=== PATIENT | female | born 1990 | race Caucasian/White ===

== ENCOUNTER 2022-06-25 19:33 | Inpatient (IN) | payer MEDICARE, MEDICAID ==
[~2022-06-25] VITALS: Ht 152.4 cm; Wt 50.0 kg
[2022-06-25] MEDS ORDERED: DIPHENHYDRAMINE 25MG CAPSULE PO ONE (21:00)
[2022-06-25] MEDS ORDERED: ASPIRIN 81MG TABLET PO ONE (21:00)
[2022-06-25 21:49] LABS: EOSINOPHILS % 2.2 % (0.0-5.0); HEMATOCRIT. 27.3 % (36.0-48.0); HEMOGLOBIN. 9.2 g/dL (12.0-16.0); LYMPHOCYTES % 17.6 % (20.0-50.0); MEAN CORPUSCULAR HEMOGLOBIN 32.3 pg (28.0-32.0); MEAN CORPUSCULAR VOLUME 95.7 fL (81.0-99.0); MEAN PLATELET VOLUME 8.6 fl (7.4-10.4); MONOCYTES % 8.4 % (2.0-8.0); NEUTROPHILS % 69.8 % (40.0-76.0); PLATELET 208 x1000/uL (130-400); RED BLOOD CELL COUNT 2.85 mill/uL (4.2-5.4)
[2022-06-25] MEDS: NITROGLYCERIN 0.4MG TABLET SL SL PRN ×2 (21:49→23:19)
[2022-06-25 21:56] LABS: CHLORIDE 92 mEq/L (98-107)
[2022-06-25] MEDS ORDERED: HYDRALAZINE 20MG/ML VIAL IV ONE (22:15)
[2022-06-25] MEDS ORDERED: HYDROCODONE/ACETAMINOPHEN 5/325MG TABLET PO ONE (22:15)
[2022-06-25] MEDS ORDERED: INSULIN REGULAR (HUMULIN R) 300UNITS/3ML VIAL SUBCUT ONE (22:30)
[2022-06-26] VITALS (7 sets, daily range): BP systolic 113–194; BP diastolic 68–104
[2022-06-26] MEDS ORDERED: INSULIN LISPRO 100 UNITS/ML SUBCUT NR (01:30)
[2022-06-26] MEDS: CLONIDINE 0.1MG TABLET PO PRN ×2 (01:46→23:57)
[2022-06-26] MEDS ORDERED: CLON0.2T PO (03:37)
[2022-06-26] MEDS ORDERED: AMLO10TA80 PO (03:37)
[2022-06-26] MEDS ORDERED: HYDR100T26 PO (03:37)
[2022-06-26] MEDS: ONDANSETRON HCL 4MG/2ML INJ IV PRN ×2 (04:10→10:17)
[2022-06-26] MEDS: DIPHENHYDRAMINE 50MG/ML VIAL IV PRN ×4 (04:10→18:17)
[2022-06-26] MEDS: HYDRALAZINE 20MG/ML VIAL IV PRN ×2 (04:11→13:06)
[2022-06-26] MEDS: DEXTROSE 50% WATER 50ML SYRINGE IV PRN ×3 (04:22→08:42)
[2022-06-26] MEDS: DEXT 5%/0.9% NACL 1,000 ML IV SCH ×2 (04:27→23:21)
[2022-06-26] MEDS: INSULIN LISPRO (HIGH DOSE) 100 UNITS/ML SUBCUT SCH ×4 (06:28→21:04)
[2022-06-26] MEDS: BLOOD SUGAR DIAGNOSTIC STRIP TEST SCH ×4 (06:28→21:11)
[2022-06-26] MEDS: PANTOPRAZOLE SODIUM 40 MG/VIAL IV SCH (08:33)
[2022-06-26] MEDS: AMLODIPINE 5MG TABLET PO SCH ×2 (09:30→21:00)
[2022-06-26] MEDS: MORPHINE SULFATE 2 MG/ML CPJ (NOT FOR IM USE) IV PRN ×3 (09:31→23:22)
[2022-06-26 10:21] LABS: BASOPHILS % 1.6 % (0.0-2.0); EOSINOPHILS % 2.4 % (0.0-5.0); HEMATOCRIT. 27.9 % (36.0-48.0); HEMOGLOBIN. 9.5 g/dL (12.0-16.0); LYMPHOCYTES % 24.5 % (20.0-50.0); MEAN CORPUSCULAR HEMOGLOBIN 32.1 pg (28.0-32.0); MEAN CORPUSCULAR VOLUME 94.4 fL (81.0-99.0); MEAN PLATELET VOLUME 8.4 fl (7.4-10.4); NEUTROPHILS % 64.5 % (40.0-76.0); PLATELET 241 x1000/uL (130-400); RED BLOOD CELL COUNT 2.95 mill/uL (4.2-5.4); RED CELL DISTRIBUTION WIDTH 14.2 % (11.6-14.6)
[2022-06-26] MEDS ORDERED: NALOXONE HCL 0.4MG/ML VIAL IV PRN (11:00)
[2022-06-26] MEDS: METOPROLOL TARTRATE 25MG TABLET PO SCH ×2 (14:15→21:00)
[2022-06-26] MEDS ORDERED: CLONIDINE 0.1MG TABLET PO SCH (14:15)
[2022-06-26 14:38] LABS: HEPATITIS B SURFACE ANTIGEN NEGATIVE
[2022-06-26] MEDS: HYDRALAZINE HCL 100MG TABLET PO SCH (17:00)
[2022-06-26] MEDS: CLONIDINE 0.2MG TABLET PO SCH (17:00)
[2022-06-26] MEDS: METOCLOPRAMIDE HCL 10MG/2ML VIAL IV SCH ×2 (17:15→23:21)
[2022-06-26] MEDS: EPOETIN ALFA-EPBX 4,000 UNIT/ML VIAL SUBCUT SCH (21:00)
[2022-06-26] MEDS: HYDRALAZINE HCL 25MG TABLET PO SCH (21:01)
[2022-06-27] VITALS: BP 168/91
[2022-06-27 04:00] VITALS: BP 166/90
[2022-06-27] MEDS: DIPHENHYDRAMINE 50MG/ML VIAL IV PRN ×3 (04:56→18:05)
[2022-06-27] MEDS: METOCLOPRAMIDE HCL 10MG/2ML VIAL IV SCH ×3 (05:01→17:53)
[2022-06-27] MEDS: BLOOD SUGAR DIAGNOSTIC STRIP TEST SCH ×4 (05:59→21:15)
[2022-06-27] MEDS: MORPHINE SULFATE 2 MG/ML CPJ (NOT FOR IM USE) IV PRN ×3 (06:49→21:40)
[2022-06-27] MEDS: INSULIN LISPRO (HIGH DOSE) 100 UNITS/ML SUBCUT SCH ×4 (07:10→21:38)
[2022-06-27 07:37] LABS: BASOPHILS % 1.5 % (0.0-2.0); HEMATOCRIT. 23.1 % (36.0-48.0); HEMOGLOBIN. 7.8 g/dL (12.0-16.0); LYMPHOCYTES % 23.7 % (20.0-50.0); MEAN CORPUSCULAR HEMOGLOBIN 32.1 pg (28.0-32.0); MEAN CORPUSCULAR VOLUME 94.8 fL (81.0-99.0); MEAN PLATELET VOLUME 8.4 fl (7.4-10.4); MONOCYTES % 8.7 % (2.0-8.0); NEUTROPHILS % 64.1 % (40.0-76.0); PLATELET 200 x1000/uL (130-400); RED BLOOD CELL COUNT 2.44 mill/uL (4.2-5.4); RED CELL DISTRIBUTION WIDTH 14.3 % (11.6-14.6)
[2022-06-27 08:00] VITALS: BP 140/81
[2022-06-27 08:32] LABS: PHOSPHORUS 4.6 mg/dL (2.5-4.9)
[2022-06-27] MEDS: HYDRALAZINE HCL 100MG TABLET PO SCH ×3 (09:00→17:53)
[2022-06-27] MEDS: AMLODIPINE 5MG TABLET PO SCH (09:00)
[2022-06-27] MEDS: CLONIDINE 0.2MG TABLET PO SCH ×2 (09:00→17:00)
[2022-06-27] MEDS: HYDRALAZINE HCL 25MG TABLET PO SCH (09:00)
[2022-06-27] MEDS: PANTOPRAZOLE SODIUM 40 MG/VIAL IV SCH (09:13)
[2022-06-27] MEDS: AMLODIPINE 10MG TABLET PO SCH (09:14)
[2022-06-27] MEDS: METOPROLOL TARTRATE 25MG TABLET PO SCH ×2 (09:14→21:00)
[2022-06-27 12:00] VITALS: BP 136/80
[2022-06-27 16:00] VITALS: BP 136/85
[2022-06-27] MEDS ORDERED: LOPERAMIDE HCL 2MG CAPSULE PO PRN (17:00)
[2022-06-27 20:00] VITALS: BP 102/61
[2022-06-27] MEDS ORDERED: EPOETIN ALFA-EPBX 4,000 UNIT/ML VIAL SUBCUT NR (21:00)
[2022-06-28] VITALS: BP 159/91
[2022-06-28] MEDS: DIPHENHYDRAMINE 50MG/ML VIAL IV PRN ×4 (00:30→20:46)
[2022-06-28] MEDS: METOCLOPRAMIDE HCL 10MG/2ML VIAL IV SCH ×5 (00:31→23:32)
[2022-06-28 04:00] VITALS: BP 151/86
[2022-06-28] MEDS: MORPHINE SULFATE 2 MG/ML CPJ (NOT FOR IM USE) IV PRN ×4 (04:14→23:33)
[2022-06-28] MEDS: BLOOD SUGAR DIAGNOSTIC STRIP TEST SCH ×4 (05:38→21:00)
[2022-06-28] MEDS: INSULIN LISPRO (HIGH DOSE) 100 UNITS/ML SUBCUT SCH ×4 (06:01→21:00)
[2022-06-28 07:40] LABS: BASOPHILS % 2.5 % (0.0-2.0); HEMATOCRIT. 25.2 % (36.0-48.0); HEMOGLOBIN. 8.3 g/dL (12.0-16.0); LYMPHOCYTES % 32.3 % (20.0-50.0); MEAN CORPUSCULAR VOLUME 97.3 fL (81.0-99.0); MEAN PLATELET VOLUME 9.1 fl (7.4-10.4); MONOCYTES % 8.7 % (2.0-8.0); NEUTROPHILS % 53.5 % (40.0-76.0); PLATELET 207 x1000/uL (130-400); RED BLOOD CELL COUNT 2.59 mill/uL (4.2-5.4); RED CELL DISTRIBUTION WIDTH 14.5 % (11.6-14.6)
[2022-06-28 07:50] LABS: CHLORIDE 94 mEq/L (98-107)
[2022-06-28 08:00] VITALS: BP 173/97
[2022-06-28 08:00] LABS: PHOSPHORUS 5.5 mg/dL (2.5-4.9); TOTAL IRON BINDING CAPACITY 194 ug/dL (250-450)
[2022-06-28] MEDS: PANTOPRAZOLE SODIUM 40 MG/VIAL IV SCH (08:41)
[2022-06-28] MEDS: METOPROLOL TARTRATE 25MG TABLET PO SCH ×2 (09:00→20:47)
[2022-06-28] MEDS: AMLODIPINE 10MG TABLET PO SCH (09:00)
[2022-06-28] MEDS: HYDRALAZINE HCL 100MG TABLET PO SCH ×3 (09:00→17:12)
[2022-06-28] MEDS: CLONIDINE 0.2MG TABLET PO SCH ×2 (09:00→17:12)
[2022-06-28 12:00] VITALS: BP 170/90
[2022-06-28] MEDS: METRONIDAZOLE 500 MG PREMIX 100 ML IV SCH ×2 (14:00→21:01)
[2022-06-28 16:00] VITALS: BP 175/96
[2022-06-28 20:30] VITALS: BP 157/88
[2022-06-28] MEDS: EPOETIN ALFA-EPBX 4,000 UNIT/ML VIAL SUBCUT SCH (20:47)
[2022-06-29] VITALS (8 sets, daily range): BP systolic 119–176; BP diastolic 75–99
[2022-06-29] MEDS: DIPHENHYDRAMINE 50MG/ML VIAL IV PRN ×2 (02:50→10:54)
[2022-06-29] MEDS: METRONIDAZOLE 500 MG PREMIX 100 ML IV SCH ×2 (05:41→14:39)
[2022-06-29] MEDS: METOCLOPRAMIDE HCL 10MG/2ML VIAL IV SCH ×2 (05:41→12:29)
[2022-06-29] MEDS: MORPHINE SULFATE 2 MG/ML CPJ (NOT FOR IM USE) IV PRN ×3 (05:44→12:30)
[2022-06-29] MEDS: CLONIDINE 0.1MG TABLET PO PRN (05:49)
[2022-06-29] MEDS: BLOOD SUGAR DIAGNOSTIC STRIP TEST SCH ×2 (06:16→12:27)
[2022-06-29] MEDS: CLONIDINE 0.2MG TABLET PO SCH (08:31)
[2022-06-29] MEDS: AMLODIPINE 10MG TABLET PO SCH (08:31)
[2022-06-29] MEDS: HYDRALAZINE 20MG/ML VIAL IV PRN (08:32)
[2022-06-29] MEDS: METOPROLOL TARTRATE 25MG TABLET PO SCH (08:32)
[2022-06-29] MEDS: HYDRALAZINE HCL 100MG TABLET PO SCH ×2 (08:38→12:28)
[2022-06-29] MEDS: INSULIN LISPRO (HIGH DOSE) 100 UNITS/ML SUBCUT SCH ×2 (08:38→12:10)
[2022-06-29] MEDS ORDERED: FAMOTIDINE 20MG/2ML VIAL IV SCH (09:00)
[2022-06-29 12:20] LABS: EOSINOPHILS % 1.5 % (0.0-5.0); HEMATOCRIT. 23.5 % (36.0-48.0); HEMOGLOBIN. 7.9 g/dL (12.0-16.0); LYMPHOCYTES % 16.3 % (20.0-50.0); MEAN CORPUSCULAR VOLUME 95.4 fL (81.0-99.0); MEAN PLATELET VOLUME 8.5 fl (7.4-10.4); MONOCYTES % 5.4 % (2.0-8.0); NEUTROPHILS % 75.8 % (40.0-76.0); PLATELET 207 x1000/uL (130-400); RED BLOOD CELL COUNT 2.46 mill/uL (4.2-5.4); RED CELL DISTRIBUTION WIDTH 14.4 % (11.6-14.6)
[2022-06-29 13:00] LABS: CHLORIDE 94 mEq/L (98-107)
[2022-06-29 13:10] LABS: PHOSPHORUS 4.6 mg/dL (2.5-4.9)
[2022-06-29] MEDS ORDERED: IMOD PO (14:14)
[2022-06-29] MEDS ORDERED: INSLIS SUBCUT (14:14)
[2022-07-01 13:06] LABS: SACCHAROMYCES CEREVISIAE IGG 41.6 Units (0.0-24.9); SACCHAROMYCES CEREVISIAE IGM 69.3 Units (0.0-24.9)
[2022-07-02 13:06] LABS: ATYPICAL pANCA <1:20 titer (Neg:<1:20)
== END 2022-06-29 17:15 | disposition home or self-care (01) | DRG 73 ==
LOC: ER 19:33 → EDBEDREQTM 21:16 → EDBEDREQ 22:16 → MICUSO 22:46 → EDBEDREQ 22:58 → EDBEDREQTM 22:58 → 7EST 06-26 02:41
PROVIDERS: ADMIT Internal Medicine; ATTEND Internal Medicine
PROC: 5A1D70Z Performance of Urinary Filtration, Intermittent, Less than 6 Hours Per Day (ICD-10-PCS; principal; 2022-06-26)
PROC: 5A1D70Z Performance of Urinary Filtration, Intermittent, Less than 6 Hours Per Day (ICD-10-PCS; 2022-06-27)
PROC: 5A1D70Z Performance of Urinary Filtration, Intermittent, Less than 6 Hours Per Day (ICD-10-PCS; 2022-06-28)
DX: E10.43 Type 1 diabetes mellitus with diabetic autonomic (poly)neuropathy (principal); N18.6 End stage renal disease; E87.1 Hypo-osmolality and hyponatremia; J90 Pleural effusion, not elsewhere classified; J98.11 Atelectasis; R18.8 Other ascites; I12.0 Hypertensive chronic kidney disease with stage 5 chronic kidney disease or end stage renal disease; K52.9 Noninfective gastroenteritis and colitis, unspecified; K31.84 Gastroparesis; E10.319 Type 1 diabetes mellitus with unspecified diabetic retinopathy without macular edema; E10.22 Type 1 diabetes mellitus with diabetic chronic kidney disease; E10.649 Type 1 diabetes mellitus with hypoglycemia without coma; E10.65 Type 1 diabetes mellitus with hyperglycemia; E78.5 Hyperlipidemia, unspecified; I16.0 Hypertensive urgency; R16.0 Hepatomegaly, not elsewhere classified; D63.1 Anemia in chronic kidney disease; H54.8 Legal blindness, as defined in USA; E66.9 Obesity, unspecified; D72.819 Decreased white blood cell count, unspecified; R74.01 Elevation of levels of liver transaminase levels; R74.8 Abnormal levels of other serum enzymes; R79.89 Other specified abnormal findings of blood chemistry; D64.9 Anemia, unspecified; Z68.21 Body mass index [BMI] 21.0-21.9, adult; Z79.899 Other long term (current) drug therapy; Z79.4 Long term (current) use of insulin; Z90.49 Acquired absence of other specified parts of digestive tract; Z99.2 Dependence on renal dialysis; Z93.1 Gastrostomy status; Z91.15 Patient's noncompliance with renal dialysis; Z86.19 Personal history of other infectious and parasitic diseases; Z83.3 Family history of diabetes mellitus; Z82.49 Family history of ischemic heart disease and other diseases of the circulatory system
CPT/HCPCS: 36415; 71045; 74176; 76700; 80048; 80053; 80076; 82248; 82533; 82607; 82728; 82746; 82962; 83036; 83540; 83550; 83735; 83880; 84100; 84439; 84443; 84484; 85025; 86256; 86671; 86705; 86709; 86803; 87340; 93005; 93306; 93971; 99285; C1893; C9113; J0360; J0885; J1200; J1815; J2270; J2405; J2765; J3490; J7042; Q0163

== ENCOUNTER 2022-08-11 13:46 | Inpatient (IN) | payer MEDICARE, MEDICAID ==
[~2022-08-11] VITALS: Ht 152.4 cm; Wt 45.8 kg
[~2022-08-11 13:46] MED LIST: AMLO10TA80 PO; CLON0.2T PO; HYDR100T26 PO; IMOD PO; INSLIS SUBCUT
[2022-08-11] MEDS ORDERED: ONDANSETRON HCL 4MG/2ML INJ IV STA (14:36)
[2022-08-11] MEDS ORDERED: MORPHINE SULFATE 4 MG/ML CPJ (NOT FOR IM USE) IV STA (14:36)
[2022-08-11] MEDS ORDERED: DIPHENHYDRAMINE 25MG CAPSULE PO ONE (14:45)
[2022-08-11] MEDS ORDERED: LABETALOL 5MG/ML SYR 20 MG/4 ML SYRINGE IV ONE ×2 (14:45→16:30)
[2022-08-11] MEDS ORDERED: DIPHENHYDRAMINE 50MG/ML VIAL IV ONE ×2 (15:30→18:30)
[2022-08-11 15:31] LABS: BASOPHILS % 2.3 % (0.0-2.0); EOSINOPHILS % 3.2 % (0.0-5.0); HEMATOCRIT. 29.1 % (36.0-48.0); HEMOGLOBIN. 9.7 g/dL (12.0-16.0); LYMPHOCYTES % 22.7 % (20.0-50.0); MEAN CORPUSCULAR HEMOGLOBIN 31.9 pg (28.0-32.0); MEAN CORPUSCULAR VOLUME 95.3 fL (81.0-99.0); MEAN PLATELET VOLUME 9.1 fl (7.4-10.4); NEUTROPHILS % 64.8 % (40.0-76.0); PLATELET 221 x1000/uL (130-400); RED BLOOD CELL COUNT 3.05 mill/uL (4.2-5.4); RED CELL DISTRIBUTION WIDTH 14.9 % (11.6-14.6)
[2022-08-11 15:33] LABS: CHLORIDE 93 mEq/L (98-107)
[2022-08-11 15:34] LABS: HCG SCREEN NEGATIVE
[2022-08-11 15:46] LABS: ETHANOL BLOOD < 10 mg/dL
[2022-08-11] MEDS ORDERED: MORPHINE SULFATE 2 MG/ML CPJ (NOT FOR IM USE) IV ONE (16:45)
[2022-08-11] MEDS ORDERED: CALCIUM GLUCONATE 1GM PREMIX 50 ML IV NR (18:00)
[2022-08-11] MEDS ORDERED: CALCIUM GLUCONATE 1,000 MG in DEXT 5% WATER 100 ML IV ONE (18:00)
[2022-08-11] MEDS ORDERED: DOCUSATE SODIUM 100MG CAPSULE PO PRN (19:30)
[2022-08-11] MEDS ORDERED: HYDRALAZINE HCL 50MG TABLET PO SCH (19:30)
[2022-08-11] MEDS ORDERED: NITROGLYCERIN 0.4MG TABLET SL SL PRN (19:30)
[2022-08-11] MEDS ORDERED: ENOXAPARIN 40MG/0.4ML SYR SUBCUT SCH (19:30)
[2022-08-11] MEDS ORDERED: GUAIFENESIN 200MG/10ML SUGAR FREE UDC PO PRN (19:30)
[2022-08-11] MEDS ORDERED: IPRATROPIUM/ALBUTEROL 0.5-3(2.5)MG/3ML NEB NEB PRN (19:30)
[2022-08-11] MEDS ORDERED: ACETAMINOPHEN 325MG TABLET PO PRN ×2 (19:30)
[2022-08-11] MEDS ORDERED: MAGNESIUM/ALUMINUM HYDROXIDE/SIMETHICONE 30ML UDC PO PRN (19:30)
[2022-08-11] MEDS ORDERED: CLONIDINE HCL 0.3MG/24HR PATCH TD SCH (19:30)
[2022-08-11] MEDS: AMLODIPINE 10MG TABLET PO SCH (19:48)
[2022-08-11] MEDS: ENOXAPARIN 30MG/0.3ML SYR SUBCUT SCH (20:00)
[2022-08-11 20:08] LABS: ETHANOL BLOOD < 10 mg/dL; HDL CHOLESTEROL 48 mg/dL (40-59); LDL CHOLESTEROL 47 mg/dL (5-100); TOTAL IRON BINDING CAPACITY 335 ug/dL (250-450)
[2022-08-11 20:35] LABS: VITAMIN B12 SERUM 446 pg/mL (211-911)
[2022-08-11 20:53] LABS: FOLIC ACID (FOLATE) SERUM > 20.00 ng/mL (>5.38)
[2022-08-11] MEDS: FAMOTIDINE 20MG TABLET PO SCH (21:00)
[2022-08-11] MEDS ORDERED: ZOLPIDEM TARTRATE 5MG TABLET PO PRN (21:00)
[2022-08-11] MEDS: BLOOD SUGAR DIAGNOSTIC STRIP TEST SCH (21:25)
[2022-08-11] MEDS: INSULIN LISPRO 100 UNITS/ML SUBCUT SCH (21:31)
[2022-08-11] MEDS: NITROGLYCERIN OINT 1GM/INCH UDPKT TD SCH (22:41)
[2022-08-11] MEDS: MINOXIDIL 2.5MG TABLET PO SCH (23:21)
[2022-08-11 23:36] LABS: CREATINE KINASE MB FRACTION 1.7 ng/mL (0.5-3.6)
[2022-08-12] VITALS (11 sets, daily range): BP systolic 132–169; BP diastolic 77–91
[2022-08-12] MEDS: DIPHENHYDRAMINE 50MG/ML VIAL IV PRN ×2 (01:33→22:17)
[2022-08-12] MEDS: NITROGLYCERIN OINT 1GM/INCH UDPKT TD SCH ×3 (06:17→22:00)
[2022-08-12 06:45] LABS: BASOPHILS % 1.5 % (0.0-2.0); EOSINOPHILS % 1.9 % (0.0-5.0); HEMATOCRIT. 27.8 % (36.0-48.0); HEMOGLOBIN. 9.4 g/dL (12.0-16.0); LYMPHOCYTES % 21.7 % (20.0-50.0); MEAN CORPUSCULAR HEMOGLOBIN 31.7 pg (28.0-32.0); MEAN CORPUSCULAR VOLUME 93.5 fL (81.0-99.0); MONOCYTES % 8.9 % (2.0-8.0); RED BLOOD CELL COUNT 2.97 mill/uL (4.2-5.4); RED CELL DISTRIBUTION WIDTH 14.7 % (11.6-14.6)
[2022-08-12 06:48] LABS: CHLORIDE 95 mEq/L (98-107)
[2022-08-12 06:58] LABS: CREATINE KINASE MB FRACTION 1.9 ng/mL (0.5-3.6); PHOSPHORUS 5.9 mg/dL (2.5-4.9)
[2022-08-12 07:38] LABS: PLATELET 143 x1000/uL (130-400)
[2022-08-12] MEDS: HYDRALAZINE 20MG/ML VIAL IV PRN ×3 (08:40→16:51)
[2022-08-12] MEDS: INSULIN LISPRO 100 UNITS/ML SUBCUT SCH ×4 (08:46→21:00)
[2022-08-12] MEDS: AMLODIPINE 10MG TABLET PO SCH (09:00)
[2022-08-12] MEDS: SEVELAMER CARBONATE 800 MG TABLET PO SCH ×3 (09:00→16:51)
[2022-08-12] MEDS: BLOOD SUGAR DIAGNOSTIC STRIP TEST SCH ×4 (09:00→21:00)
[2022-08-12] MEDS: MINOXIDIL 2.5MG TABLET PO SCH ×2 (09:00→21:00)
[2022-08-12] MEDS: ONDANSETRON HCL 4MG/2ML INJ IV PRN ×2 (10:46→22:17)
[2022-08-12] MEDS: DEXTROSE 50% WATER 50ML SYRINGE IV PRN (12:23)
[2022-08-12] MEDS ORDERED: MORPHINE SULFATE 2 MG/ML CPJ (NOT FOR IM USE) IV NR (17:00)
[2022-08-12] MEDS ORDERED: METOCLOPRAMIDE 10MG/10 ML UDC PO SCH ×2 (17:10→21:00)
[2022-08-12] MEDS: FAMOTIDINE 20MG TABLET PO SCH (21:00)
[2022-08-12 21:58] LABS: HEPATITIS B SURFACE ANTIGEN NEGATIVE
[2022-08-12] MEDS: ENOXAPARIN 30MG/0.3ML SYR SUBCUT SCH (22:00)
[2022-08-13] VITALS (7 sets, daily range): BP systolic 124–181; BP diastolic 68–99
[2022-08-13] MEDS: INSULIN LISPRO 100 UNITS/ML SUBCUT SCH ×4 (05:44→21:00)
[2022-08-13] MEDS: ONDANSETRON HCL 4MG/2ML INJ IV PRN (05:50)
[2022-08-13] MEDS: NITROGLYCERIN OINT 1GM/INCH UDPKT TD SCH ×3 (05:51→21:54)
[2022-08-13] MEDS: DIPHENHYDRAMINE 50MG/ML VIAL IV PRN ×3 (05:51→21:00)
[2022-08-13] MEDS: BLOOD SUGAR DIAGNOSTIC STRIP TEST SCH ×4 (05:52→21:17)
[2022-08-13 06:44] LABS: BASOPHILS % 2.2 % (0.0-2.0); HEMATOCRIT. 28.1 % (36.0-48.0); HEMOGLOBIN. 9.2 g/dL (12.0-16.0); LYMPHOCYTES % 23.4 % (20.0-50.0); MEAN CORPUSCULAR HEMOGLOBIN 31.7 pg (28.0-32.0); MEAN CORPUSCULAR VOLUME 97.2 fL (81.0-99.0); MEAN PLATELET VOLUME 7.9 fl (7.4-10.4); MONOCYTES % 6.5 % (2.0-8.0); NEUTROPHILS % 65.9 % (40.0-76.0); PLATELET 219 x1000/uL (130-400); RED CELL DISTRIBUTION WIDTH 15.8 % (11.6-14.6)
[2022-08-13] MEDS: SEVELAMER CARBONATE 800 MG TABLET PO SCH ×4 (07:40→16:50)
[2022-08-13 08:13] LABS: CHLORIDE 95 mEq/L (98-107)
[2022-08-13 08:21] LABS: PHOSPHORUS 4.8 mg/dL (2.5-4.9)
[2022-08-13] MEDS: AMLODIPINE 10MG TABLET PO SCH ×2 (08:30→08:41)
[2022-08-13] MEDS: HYDRALAZINE 20MG/ML VIAL IV PRN ×3 (08:31→16:50)
[2022-08-13] MEDS: MINOXIDIL 2.5MG TABLET PO SCH ×3 (08:31→21:53)
[2022-08-13] MEDS: LIDOCAINE 5% PATCH TOP SCH (13:40)
[2022-08-13] MEDS: FAMOTIDINE 20MG TABLET PO SCH (21:16)
[2022-08-13] MEDS: ENOXAPARIN 30MG/0.3ML SYR SUBCUT SCH (21:16)
[2022-08-13] MEDS: DEXTROSE 50% WATER 50ML SYRINGE IV PRN (21:52)
[2022-08-14] VITALS (18 sets, daily range): BP systolic 103–183; BP diastolic 58–98
[2022-08-14] MEDS: NITROGLYCERIN OINT 1GM/INCH UDPKT TD SCH ×3 (05:50→15:39)
[2022-08-14] MEDS: BLOOD SUGAR DIAGNOSTIC STRIP TEST SCH ×4 (05:55→20:05)
[2022-08-14] MEDS: INSULIN LISPRO 100 UNITS/ML SUBCUT SCH ×4 (06:52→20:04)
[2022-08-14] MEDS: SEVELAMER CARBONATE 800 MG TABLET PO SCH ×3 (07:40→18:10)
[2022-08-14 08:20] LABS: BASOPHILS % 1.3 % (0.0-2.0); EOSINOPHILS % 2.4 % (0.0-5.0); HEMATOCRIT. 26.1 % (36.0-48.0); HEMOGLOBIN. 8.4 g/dL (12.0-16.0); LYMPHOCYTES % 22.9 % (20.0-50.0); MEAN CORPUSCULAR HEMOGLOBIN 31.4 pg (28.0-32.0); MEAN CORPUSCULAR VOLUME 97.8 fL (81.0-99.0); MEAN PLATELET VOLUME 8.2 fl (7.4-10.4); MONOCYTES % 9.2 % (2.0-8.0); NEUTROPHILS % 64.2 % (40.0-76.0); PLATELET 188 x1000/uL (130-400); RED BLOOD CELL COUNT 2.66 mill/uL (4.2-5.4)
[2022-08-14] MEDS: DIPHENHYDRAMINE 50MG/ML VIAL IV PRN ×2 (08:42→16:22)
[2022-08-14] MEDS: MINOXIDIL 2.5MG TABLET PO SCH (09:00)
[2022-08-14] MEDS: AMLODIPINE 10MG TABLET PO SCH (09:00)
[2022-08-14 09:14] LABS: PHOSPHORUS 5.8 mg/dL (2.5-4.9)
[2022-08-14] MEDS: LIDOCAINE 5% PATCH TOP SCH (13:09)
[2022-08-14] MEDS: HYDRALAZINE 20MG/ML VIAL IV PRN (16:37)
== END 2022-08-14 20:32 | disposition home health service (06) | DRG 73 ==
LOC: ER 13:59 → 8WST 18:31 → SUPCPDRO 19:18 → EDBEDREQSVC 19:42 → ENRESERV 08-12 09:01
PROVIDERS: ADMIT Internal Medicine; ATTEND Internal Medicine
PROC: 5A1D70Z Performance of Urinary Filtration, Intermittent, Less than 6 Hours Per Day (ICD-10-PCS; principal; 2022-08-12)
PROC: 5A1D70Z Performance of Urinary Filtration, Intermittent, Less than 6 Hours Per Day (ICD-10-PCS; 2022-08-14)
DX: E10.43 Type 1 diabetes mellitus with diabetic autonomic (poly)neuropathy (principal); N18.6 End stage renal disease; I16.1 Hypertensive emergency; I50.32 Chronic diastolic (congestive) heart failure; E87.1 Hypo-osmolality and hyponatremia; R18.8 Other ascites; I13.2 Hypertensive heart and chronic kidney disease with heart failure and with stage 5 chronic kidney disease, or end stage renal disease; D63.1 Anemia in chronic kidney disease; E88.09 Other disorders of plasma-protein metabolism, not elsewhere classified; K31.84 Gastroparesis; E87.5 Hyperkalemia; Z20.822 Contact with and (suspected) exposure to COVID-19; K52.9 Noninfective gastroenteritis and colitis, unspecified; E10.22 Type 1 diabetes mellitus with diabetic chronic kidney disease; E10.319 Type 1 diabetes mellitus with unspecified diabetic retinopathy without macular edema; E78.5 Hyperlipidemia, unspecified; R74.01 Elevation of levels of liver transaminase levels; Z88.8 Allergy status to other drugs, medicaments and biological substances; Z79.899 Other long term (current) drug therapy; Z99.2 Dependence on renal dialysis; Z79.4 Long term (current) use of insulin; Z91.15 Patient's noncompliance with renal dialysis; Z86.74 Personal history of sudden cardiac arrest; Z99.3 Dependence on wheelchair; Z82.49 Family history of ischemic heart disease and other diseases of the circulatory system; Z83.3 Family history of diabetes mellitus
CPT/HCPCS: 36415; 71045; 74176; 80048; 80053; 80061; 80307; 80320; 82550; 82553; 82607; 82746; 82962; 83036; 83540; 83550; 83605; 83735; 83880; 84100; 84439; 84443; 84484; 84703; 85025; 86705; 86709; 86803; 87340; 87426; 87804; 90935; 93005; 93306; 93970; 97162; 99285; C9803; J0360; J0610; J1200; J1650; J1815; J2270; J2405; J3490; J7060; Q0163; G0480

== ENCOUNTER 2022-11-04 07:11 | Inpatient (IN) | payer MEDICARE, MEDICAID ==
[~2022-11-04] VITALS: Ht 160 cm; Wt 47.6 kg
[2022-11-04 10:03] LABS: BASOPHILS % 2.7 % (0.0-2.0); EOSINOPHILS % 6.4 % (0.0-5.0); HEMATOCRIT. 23.3 % (36.0-48.0); HEMOGLOBIN. 7.7 g/dL (12.0-16.0); LYMPHOCYTES % 20.6 % (20.0-50.0); MEAN CORPUSCULAR HEMOGLOBIN 32.5 pg (28.0-32.0); MEAN CORPUSCULAR VOLUME 97.9 fL (81.0-99.0); MEAN PLATELET VOLUME 8.3 fl (7.4-10.4); MONOCYTES % 5.1 % (2.0-8.0); NEUTROPHILS % 65.2 % (40.0-76.0); PLATELET 296 x1000/uL (130-400); RED BLOOD CELL COUNT 2.38 mill/uL (4.2-5.4); RED CELL DISTRIBUTION WIDTH 17.2 % (11.6-14.6)
[2022-11-04 10:04] LABS: CHLORIDE 84 mEq/L (98-107)
[2022-11-04 11:16] LABS: INR 1.1; PROTHROMBIN TIME 12.1 sec (9.6-11.0)
[2022-11-04] MEDS ORDERED: MORPHINE SULFATE 4 MG/ML CPJ (NOT FOR IM USE) IV ONE (11:45)
[2022-11-04] MEDS ORDERED: DIPHENHYDRAMINE 50MG/ML VIAL IV ONE (12:15)
[2022-11-04] MEDS ORDERED: HYDRALAZINE 20MG/ML VIAL IV PRN (14:00)
[2022-11-04] MEDS: SODIUM CHLORIDE 0.9% INJ 3ML FLUSH IVF SCH ×2 (14:00→22:39)
[2022-11-04] MEDS ORDERED: ACETAMINOPHEN 325MG TABLET PO PRN ×2 (14:00)
[2022-11-04] MEDS ORDERED: CLONIDINE 0.1MG TABLET PO PRN (14:00)
[2022-11-04] MEDS: HYDRALAZINE HCL 100MG TABLET PO SCH ×2 (14:10→17:00)
[2022-11-04 14:35] LABS: HEPATITIS B SURFACE ANTIGEN NEGATIVE
[2022-11-04 14:45] VITALS: BP 179/90
[2022-11-04] MEDS ORDERED: NICARDIPINE 40MG/200ML PREMIX 200 ML IV ONE (14:45)
[2022-11-04 14:50] LABS: CHLORIDE 85 mEq/L (98-107)
[2022-11-04 15:04] LABS: EOSINOPHILS % 4.7 % (0.0-5.0); HEMATOCRIT. 23.4 % (36.0-48.0); HEMOGLOBIN. 7.6 g/dL (12.0-16.0); LYMPHOCYTES % 23.6 % (20.0-50.0); MEAN CORPUSCULAR HEMOGLOBIN 32.4 pg (28.0-32.0); MEAN CORPUSCULAR VOLUME 99.9 fL (81.0-99.0); MEAN PLATELET VOLUME 8.3 fl (7.4-10.4); MONOCYTES % 5.9 % (2.0-8.0); NEUTROPHILS % 62.8 % (40.0-76.0); PLATELET 260 x1000/uL (130-400); RED BLOOD CELL COUNT 2.34 mill/uL (4.2-5.4); RED CELL DISTRIBUTION WIDTH 17.2 % (11.6-14.6)
[2022-11-04] MEDS ORDERED: INSULIN REGULAR 100U/100ML PMX 100 ML IV SCH (15:30)
[2022-11-04] MEDS ORDERED: DEXTROSE 50% WATER 25ML (12.5GM) IV PRN (15:30)
[2022-11-04] MEDS: BLOOD SUGAR DIAGNOSTIC STRIP TEST SCH ×9 (15:30→23:43)
[2022-11-04] MEDS ORDERED: NALOXONE HCL 0.4MG/ML VIAL IV PRN (17:00)
[2022-11-04] MEDS: CLONIDINE 0.2MG TABLET PO SCH (17:00)
[2022-11-04 17:45] VITALS: BP 108/62
[2022-11-04 18:30] VITALS: BP 103/61
[2022-11-04 18:46] LABS: TOTAL IRON BINDING CAPACITY 249 ug/dL (250-450)
[2022-11-04 18:50] LABS: FERRITIN 519 ng/mL (10-291)
[2022-11-04 19:10] LABS: VITAMIN B12 SERUM 535 pg/mL (211-911)
[2022-11-04 19:45] VITALS: BP 117/57
[2022-11-04] MEDS: MORPHINE SULFATE 2 MG/ML CPJ (NOT FOR IM USE) IV PRN (20:00)
[2022-11-04] MEDS: CARVEDILOL 6.25 MG TABLET PO SCH (21:00)
[2022-11-04 22:07] LABS: HEMATOCRIT 19.3 % (36.0-48.0); HEMOGLOBIN 6.4 g/dL (12.0-16.0)
[2022-11-04] MEDS ORDERED: DIPHENHYDRAMINE 50MG/ML VIAL IV NR (23:45)
[2022-11-05] VITALS (23 sets, daily range): BP systolic 115–196; BP diastolic 71–121
[2022-11-05] MEDS: BLOOD SUGAR DIAGNOSTIC STRIP TEST SCH ×9 (00:38→21:11)
[2022-11-05] MEDS: MORPHINE SULFATE 2 MG/ML CPJ (NOT FOR IM USE) IV PRN ×5 (01:28→18:49)
[2022-11-05 03:32] LABS: HEMATOCRIT 18.1 % (36.0-48.0); HEMOGLOBIN 6.1 g/dL (12.0-16.0)
[2022-11-05 05:17] LABS: EOSINOPHILS % 1.6 % (0.0-5.0); LYMPHOCYTES % 21.7 % (20.0-50.0); MEAN CORPUSCULAR HEMOGLOBIN 33.2 pg (28.0-32.0); MEAN CORPUSCULAR VOLUME 97.3 fL (81.0-99.0); MEAN PLATELET VOLUME 7.7 fl (7.4-10.4); MONOCYTES % 9.8 % (2.0-8.0); NEUTROPHILS % 64.9 % (40.0-76.0); PLATELET 222 x1000/uL (130-400); RED BLOOD CELL COUNT 1.79 mill/uL (4.2-5.4); RED CELL DISTRIBUTION WIDTH 16.9 % (11.6-14.6)
[2022-11-05 05:31] LABS: INR 1.2; PROTHROMBIN TIME 12.7 sec (9.6-11.0)
[2022-11-05] MEDS: ONDANSETRON HCL 4MG/2ML INJ IV PRN ×2 (05:52→13:55)
[2022-11-05] MEDS: DIPHENHYDRAMINE 50MG/ML VIAL IV PRN ×3 (06:21→18:49)
[2022-11-05 06:25] LABS: HEMATOCRIT. 17.5 % (36.0-48.0)
[2022-11-05] MEDS ORDERED: DEXTROSE 5% WATER 1,000 ML IV SCH (07:45)
[2022-11-05] MEDS ORDERED: DEXTROSE 50% WATER 50ML SYRINGE IV PRN (07:45)
[2022-11-05] MEDS: AMLODIPINE 10MG TABLET PO SCH (09:00)
[2022-11-05] MEDS: CLONIDINE 0.2MG TABLET PO SCH ×2 (09:00→17:00)
[2022-11-05] MEDS: CARVEDILOL 6.25 MG TABLET PO SCH ×2 (09:00→21:00)
[2022-11-05] MEDS ORDERED: KCL 20MEQ/100ML PREMIX 100 ML IV SCH (09:00)
[2022-11-05] MEDS: HYDRALAZINE HCL 100MG TABLET PO SCH ×3 (09:00→17:00)
[2022-11-05] MEDS: PANTOPRAZOLE SODIUM 40 MG/VIAL IV SCH ×2 (09:41→17:15)
[2022-11-05] MEDS: INSULIN LISPRO 100 UNITS/ML SUBCUT SCH ×3 (12:17→21:00)
[2022-11-05] MEDS ORDERED: PROCHLORPERAZINE 10MG/2ML VIAL IM PRN (14:00)
[2022-11-05 16:51] LABS: HEMOGLOBIN 7.6 g/dL (12.0-16.0)
[2022-11-05] MEDS: DEXTROSE 50% WATER 50ML (25GM) IV PRN (16:51)
[2022-11-05] MEDS ORDERED: DEXT 10% WATER 1,000 ML IV SCH ×2 (17:00→17:15)
[2022-11-05] MEDS: HYDRALAZINE 20MG/ML VIAL IV PRN (19:35)
[2022-11-05 23:42] LABS: HEMOGLOBIN 7.5 g/dL (12.0-16.0)
[2022-11-06] VITALS (36 sets, daily range): BP systolic 122–207; BP diastolic 75–120
[2022-11-06] MEDS: DIPHENHYDRAMINE 50MG/ML VIAL IV PRN ×4 (01:13→22:02)
[2022-11-06] MEDS: MORPHINE SULFATE 2 MG/ML CPJ (NOT FOR IM USE) IV PRN ×4 (01:13→22:02)
[2022-11-06] MEDS: INSULIN LISPRO 100 UNITS/ML SUBCUT SCH ×5 (06:08→21:16)
[2022-11-06] MEDS: BLOOD SUGAR DIAGNOSTIC STRIP TEST SCH ×5 (06:09→20:50)
[2022-11-06] MEDS: HYDRALAZINE 20MG/ML VIAL IV PRN ×3 (06:27→21:14)
[2022-11-06 07:29] LABS: BASOPHILS % 2.5 % (0.0-2.0); EOSINOPHILS % 3.5 % (0.0-5.0); HEMATOCRIT. 22.8 % (36.0-48.0); HEMOGLOBIN. 7.6 g/dL (12.0-16.0); MEAN CORPUSCULAR HEMOGLOBIN 31.6 pg (28.0-32.0); MEAN CORPUSCULAR VOLUME 95.2 fL (81.0-99.0); MEAN PLATELET VOLUME 7.9 fl (7.4-10.4); MONOCYTES % 9.5 % (2.0-8.0); NEUTROPHILS % 55.5 % (40.0-76.0); PLATELET 201 x1000/uL (130-400); RED CELL DISTRIBUTION WIDTH 21.5 % (11.6-14.6)
[2022-11-06 07:47] LABS: PHOSPHORUS 6.6 mg/dL (2.5-4.9)
[2022-11-06] MEDS: CARVEDILOL 6.25 MG TABLET PO SCH ×2 (08:09→21:00)
[2022-11-06] MEDS: CLONIDINE 0.2MG TABLET PO SCH ×2 (08:10→16:05)
[2022-11-06] MEDS: HYDRALAZINE HCL 100MG TABLET PO SCH ×3 (08:10→16:05)
[2022-11-06] MEDS: AMLODIPINE 10MG TABLET PO SCH (08:10)
[2022-11-06] MEDS: PANTOPRAZOLE SODIUM 40 MG/VIAL IV SCH ×2 (08:25→16:23)
[2022-11-06] MEDS: DEXT 5%/0.45% NACL 1000ML 1,000 ML IV SCH (12:18)
[2022-11-06 20:42] LABS: HEMATOCRIT 22.2 % (36.0-48.0); HEMOGLOBIN 7.3 g/dL (12.0-16.0)
[2022-11-06] MEDS: LABETALOL 5MG/ML SYR 20 MG/4 ML SYRINGE IV PRN (22:41)
[2022-11-07] VITALS (10 sets, daily range): BP systolic 126–185; BP diastolic 78–94
[2022-11-07] MEDS: DIPHENHYDRAMINE 50MG/ML VIAL IV PRN ×2 (04:06→11:08)
[2022-11-07] MEDS: LABETALOL 5MG/ML SYR 20 MG/4 ML SYRINGE IV PRN ×3 (04:06→19:47)
[2022-11-07] MEDS: MORPHINE SULFATE 2 MG/ML CPJ (NOT FOR IM USE) IV PRN ×2 (04:06→10:13)
[2022-11-07 06:17] LABS: BASOPHILS % 2.3 % (0.0-2.0); EOSINOPHILS % 2.6 % (0.0-5.0); LYMPHOCYTES % 24.4 % (20.0-50.0); MEAN CORPUSCULAR HEMOGLOBIN 31.1 pg (28.0-32.0); MEAN CORPUSCULAR VOLUME 93.3 fL (81.0-99.0); MEAN PLATELET VOLUME 8.1 fl (7.4-10.4); MONOCYTES % 10.1 % (2.0-8.0); NEUTROPHILS % 60.6 % (40.0-76.0); PLATELET 168 x1000/uL (130-400); RED BLOOD CELL COUNT 2.58 mill/uL (4.2-5.4); RED CELL DISTRIBUTION WIDTH 20.8 % (11.6-14.6)
[2022-11-07] MEDS: BLOOD SUGAR DIAGNOSTIC STRIP TEST SCH ×4 (06:21→20:34)
[2022-11-07] MEDS: INSULIN LISPRO 100 UNITS/ML SUBCUT SCH ×4 (07:00→21:06)
[2022-11-07] MEDS: CARVEDILOL 6.25 MG TABLET PO SCH ×2 (08:44→20:29)
[2022-11-07] MEDS: CLONIDINE 0.2MG TABLET PO SCH ×2 (08:44→18:12)
[2022-11-07] MEDS: HYDRALAZINE HCL 100MG TABLET PO SCH ×3 (08:44→18:11)
[2022-11-07] MEDS: AMLODIPINE 10MG TABLET PO SCH (08:45)
[2022-11-07] MEDS: PANTOPRAZOLE SODIUM 40 MG/VIAL IV SCH ×2 (08:50→18:11)
[2022-11-07] MEDS: HYDRALAZINE 20MG/ML VIAL IV PRN (08:51)
[2022-11-07] MEDS: DEXT 5%/0.45% NACL 1000ML 1,000 ML IV SCH (11:09)
[2022-11-07] MEDS ORDERED: DOCUSATE SODIUM 250MG CAPSULE PO SCH (13:30)
[2022-11-07] MEDS: DEXTROSE 50% WATER 50ML (25GM) IV PRN (23:22)
[2022-11-08 00:09] VITALS: BP 139/78
== END 2022-11-08 00:39 | disposition home health service (06) | DRG 682 ==
LOC: ER 07:11 → MICUSO 11:06 → EDBEDREQSVC 14:35 → MICUSO 11-05 06:04 → 8WST 11-06 17:10
PROVIDERS: ADMIT Internal Medicine; ATTEND Internal Medicine
PROC: 2Y41X5Z Packing of Nasal Region using Packing Material (ICD-10-PCS; 2022-11-04)
PROC: 5A1D70Z Performance of Urinary Filtration, Intermittent, Less than 6 Hours Per Day (ICD-10-PCS; 2022-11-04)
PROC: 02HV33Z Insertion of Infusion Device into Superior Vena Cava, Percutaneous Approach (ICD-10-PCS; principal; 2022-11-05)
PROC: 30233N1 Transfusion of Nonautologous Red Blood Cells into Peripheral Vein, Percutaneous Approach (ICD-10-PCS; 2022-11-05)
PROC: 5A1D70Z Performance of Urinary Filtration, Intermittent, Less than 6 Hours Per Day (ICD-10-PCS; 2022-11-06)
PROC: 30233N1 Transfusion of Nonautologous Red Blood Cells into Peripheral Vein, Percutaneous Approach (ICD-10-PCS; 2022-11-06)
DX: I12.0 Hypertensive chronic kidney disease with stage 5 chronic kidney disease or end stage renal disease (principal); N18.6 End stage renal disease; I16.1 Hypertensive emergency; K92.2 Gastrointestinal hemorrhage, unspecified; E87.1 Hypo-osmolality and hyponatremia; E10.43 Type 1 diabetes mellitus with diabetic autonomic (poly)neuropathy; R04.0 Epistaxis; E87.5 Hyperkalemia; K31.84 Gastroparesis; D63.1 Anemia in chronic kidney disease; Z99.2 Dependence on renal dialysis; Z88.8 Allergy status to other drugs, medicaments and biological substances; Z79.899 Other long term (current) drug therapy; Z90.49 Acquired absence of other specified parts of digestive tract; Z93.1 Gastrostomy status; E10.22 Type 1 diabetes mellitus with diabetic chronic kidney disease; E10.649 Type 1 diabetes mellitus with hypoglycemia without coma; E10.65 Type 1 diabetes mellitus with hyperglycemia
CPT/HCPCS: 36415; 71045; 74176; 80048; 80053; 80076; 82607; 82728; 82746; 82962; 82977; 83036; 83540; 83550; 83735; 84100; 85014; 85018; 85025; 85044; 86705; 86709; 86803; 86850; 86900; 86920; 87340; 90935; 93005; 99291; C9113; J0360; J0780; J1200; J1815; J2270; J2405; J3480; J3490; P9016

== ENCOUNTER 2022-12-02 22:07 | Inpatient (IN) | payer MEDICARE, MEDICAID ==
[~2022-12-02] VITALS: Ht 160 cm; Wt 52.7 kg
[2022-12-02] MEDS ORDERED: DEXTROSE 50% WATER 50ML SYRINGE IV ONE (22:30)
[2022-12-02] MEDS ORDERED: ONDANSETRON HCL 4MG/2ML INJ IV STA (22:30)
[2022-12-02] MEDS ORDERED: MORPHINE SULFATE 4 MG/ML CPJ (NOT FOR IM USE) IV STA (22:30)
[2022-12-02 23:07] LABS: BASOPHILS % 1.7 % (0.0-2.0); EOSINOPHILS % 4.7 % (0.0-5.0); HEMATOCRIT. 34.5 % (36.0-48.0); MEAN PLATELET VOLUME 7.6 fl (7.4-10.4); MONOCYTES % 5.1 % (2.0-8.0); NEUTROPHILS % 65.5 % (40.0-76.0); PLATELET 265 x1000/uL (130-400); RED BLOOD CELL COUNT 3.55 mill/uL (4.2-5.4); RED CELL DISTRIBUTION WIDTH 17.3 % (11.6-14.6)
[2022-12-02 23:13] LABS: CHLORIDE 98 mEq/L (98-107)
[2022-12-02 23:16] LABS: INR 1.1; PARTIAL THROMBOPLASTIN TIME 27.8 sec (23.4-31.0); PROTHROMBIN TIME 12.2 sec (9.6-11.0)
[2022-12-02] MEDS ORDERED: ALBUTEROL (0.083%) 2.5MG/3ML NEB HHN ONE (23:30)
[2022-12-02] MEDS ORDERED: CALCIUM CHLORIDE 1GM/10ML SYR IV ONE (23:30)
[2022-12-02 23:35] LABS: ETHANOL BLOOD < 10 mg/dL
[2022-12-03] VITALS (11 sets, daily range): BP systolic 152–215; BP diastolic 79–109
[2022-12-03 00:30] LABS: HCG SCREEN NEGATIVE
[2022-12-03] MEDS ORDERED: ASPIRIN 81MG TABLET PO ONE (02:30)
[2022-12-03] MEDS ORDERED: MORPHINE SULFATE 4 MG/ML CPJ (NOT FOR IM USE) IV ONE (04:15)
[2022-12-03] MEDS ORDERED: ASPIRIN 81MG TABLET PO NR ×2 (04:30→08:00)
[2022-12-03] MEDS ORDERED: ONDANSETRON HCL 4MG/2ML INJ IV PRN ×2 (04:45→10:45)
[2022-12-03] MEDS ORDERED: HYDRALAZINE 20MG/ML VIAL IV PRN (04:45)
[2022-12-03] MEDS ORDERED: MORPHINE SULFATE 2 MG/ML CPJ (NOT FOR IM USE) IV PRN (04:45)
[2022-12-03] MEDS ORDERED: DEXT 5%/0.45% NACL 1000ML 1,000 ML IV SCH (04:45)
[2022-12-03] MEDS ORDERED: METRONIDAZOLE 500 MG PREMIX 100 ML IV ONE (05:15)
[2022-12-03] MEDS ORDERED: CEFTRIAXONE 1 G PREMIX 50 ML IV ONE (05:15)
[2022-12-03] MEDS ORDERED: CEFTRIAXONE 1 G PREMIX 50 ML IV NR (05:30)
[2022-12-03] MEDS ORDERED: METRONIDAZOLE 500 MG PREMIX 100 ML IV NR (05:30)
[2022-12-03] MEDS ORDERED: NALOXONE HCL 0.4MG/ML VIAL IV PRN (10:30)
[2022-12-03] MEDS ORDERED: ACETAMINOPHEN 325MG TABLET PO PRN (10:45)
[2022-12-03] MEDS ORDERED: DIPHENHYDRAMINE 50MG/ML VIAL IV PRN ×2 (10:45)
[2022-12-03] MEDS: DIPHENHYDRAMINE 50MG/ML VIAL IV PRN ×2 (11:05→17:51)
[2022-12-03] MEDS: SEVELAMER CARBONATE 800 MG TABLET PO SCH ×3 (13:04→17:58)
[2022-12-03] MEDS: HYDRALAZINE 20MG/ML VIAL IV PRN (13:33)
[2022-12-03 15:10] LABS: HEPATITIS B SURFACE ANTIGEN NEGATIVE
[2022-12-03] MEDS: MORPHINE SULFATE 2 MG/ML CPJ (NOT FOR IM USE) IV PRN ×2 (15:38→20:11)
[2022-12-03 15:56] LABS: CREATINE KINASE MB FRACTION 6.9 ng/mL (0.5-3.6)
[2022-12-03] MEDS ORDERED: INSULIN LISPRO 100 UNITS/ML SUBCUT NR (16:30)
[2022-12-03] MEDS ORDERED: INSULIN GLARGINE 100 UNITS/ML SUBCUT NR (17:00)
[2022-12-03] MEDS: BLOOD SUGAR DIAGNOSTIC STRIP TEST SCH (20:11)
[2022-12-03] MEDS: INSULIN LISPRO 100 UNITS/ML SUBCUT SCH (20:14)
[2022-12-03] MEDS: DEXTROSE 50% WATER 50ML SYRINGE IV PRN ×2 (21:41→23:50)
[2022-12-03 23:50] LABS: CREATINE KINASE MB FRACTION 6.5 ng/mL (0.5-3.6)
[2022-12-04 00:05] VITALS: BP 184/92
[2022-12-04] MEDS: HYDRALAZINE 20MG/ML VIAL IV PRN ×3 (00:53→20:52)
[2022-12-04] MEDS: DEXT 10% WATER 1,000 ML IV SCH ×2 (01:21→16:43)
[2022-12-04 04:00] VITALS: BP 180/97
[2022-12-04] MEDS: DIPHENHYDRAMINE 50MG/ML VIAL IV PRN ×3 (05:26→20:45)
[2022-12-04] MEDS: MORPHINE SULFATE 2 MG/ML CPJ (NOT FOR IM USE) IV PRN ×3 (05:26→20:46)
[2022-12-04] MEDS: INSULIN LISPRO 100 UNITS/ML SUBCUT SCH ×4 (05:31→20:53)
[2022-12-04] MEDS: BLOOD SUGAR DIAGNOSTIC STRIP TEST SCH ×4 (05:31→20:53)
[2022-12-04 08:00] VITALS: BP 187/104
[2022-12-04] MEDS: SEVELAMER CARBONATE 800 MG TABLET PO SCH ×3 (08:10→18:10)
[2022-12-04] MEDS: FOLIC ACID/VITAMIN B COMP W-C TABLET PO SCH (08:48)
[2022-12-04] MEDS ORDERED: INSULIN LISPRO 100 UNITS/ML SUBCUT NR ×2 (10:15→10:30)
[2022-12-04 11:48] VITALS: BP 136/82
[2022-12-04] MEDS: CLONIDINE 0.2MG TABLET PO SCH ×2 (12:00→20:52)
[2022-12-04] MEDS: AMLODIPINE 10MG TABLET PO SCH (12:00)
[2022-12-04] MEDS: HYDRALAZINE HCL 100MG TABLET PO SCH ×2 (13:52→20:53)
[2022-12-04] MEDS ORDERED: METOCLOPRAMIDE HCL 10MG/2ML VIAL IV SCH (14:00)
[2022-12-04 16:00] VITALS: BP 135/75
[2022-12-04 17:35] LABS: CHLORIDE 94 mEq/L (98-107)
[2022-12-04 20:00] VITALS: BP_SYST 115; BP_SYST 205; BP_DIAS 107; BP_DIAS 75
[2022-12-05] VITALS (11 sets, daily range): BP systolic 127–204; BP diastolic 68–102
[2022-12-05] MEDS ORDERED: INSULIN LISPRO 100 UNITS/ML SUBCUT NR (01:00)
[2022-12-05] MEDS: BLOOD SUGAR DIAGNOSTIC STRIP TEST SCH ×6 (04:00→23:54)
[2022-12-05] MEDS: DIPHENHYDRAMINE 50MG/ML VIAL IV PRN ×3 (04:58→20:01)
[2022-12-05] MEDS: HYDRALAZINE 20MG/ML VIAL IV PRN ×2 (04:58→19:45)
[2022-12-05] MEDS: DEXT 10% WATER 1,000 ML IV SCH ×2 (04:59→21:33)
[2022-12-05] MEDS: MORPHINE SULFATE 2 MG/ML CPJ (NOT FOR IM USE) IV PRN ×3 (04:59→20:01)
[2022-12-05] MEDS: HYDRALAZINE HCL 100MG TABLET PO SCH ×2 (06:00→13:28)
[2022-12-05 06:46] LABS: BASOPHILS % 1.4 % (0.0-2.0); EOSINOPHILS % 3.1 % (0.0-5.0); HEMATOCRIT. 29.2 % (36.0-48.0); HEMOGLOBIN. 9.7 g/dL (12.0-16.0); LYMPHOCYTES % 18.7 % (20.0-50.0); MEAN CORPUSCULAR HEMOGLOBIN 31.7 pg (28.0-32.0); MEAN PLATELET VOLUME 8.2 fl (7.4-10.4); MONOCYTES % 7.5 % (2.0-8.0); NEUTROPHILS % 69.3 % (40.0-76.0); PLATELET 207 x1000/uL (130-400); RED BLOOD CELL COUNT 3.04 mill/uL (4.2-5.4); RED CELL DISTRIBUTION WIDTH 16.8 % (11.6-14.6)
[2022-12-05] MEDS: INSULIN LISPRO 100 UNITS/ML SUBCUT SCH ×4 (08:10→20:36)
[2022-12-05] MEDS: SEVELAMER CARBONATE 800 MG TABLET PO SCH ×3 (08:10→17:33)
[2022-12-05] MEDS: CLONIDINE 0.2MG TABLET PO SCH ×2 (08:49→21:14)
[2022-12-05] MEDS: FOLIC ACID/VITAMIN B COMP W-C TABLET PO SCH (08:50)
[2022-12-05] MEDS: AMLODIPINE 10MG TABLET PO SCH (08:51)
[2022-12-05] MEDS ORDERED: METOCLOPRAMIDE HCL 10MG/2ML VIAL IV SCH (12:00)
[2022-12-05] MEDS: ONDANSETRON HCL 4MG/2ML INJ IV SCH ×2 (12:16→17:30)
[2022-12-05] MEDS: PANTOPRAZOLE SODIUM 40 MG/VIAL IV SCH (12:16)
[2022-12-05 17:22] LABS: TOTAL IRON BINDING CAPACITY 234 ug/dL (250-450)
[2022-12-05 18:53] LABS: FOLIC ACID (FOLATE) SERUM 9.2 ng/mL (>5.38)
[2022-12-05] MEDS: EPOETIN ALFA-EPBX 4,000 UNIT/ML VIAL SUBCUT SCH (21:15)
[2022-12-06] VITALS (9 sets, daily range): BP systolic 114–185; BP diastolic 55–99
[2022-12-06] MEDS: ONDANSETRON HCL 4MG/2ML INJ IV SCH ×4 (00:02→18:15)
[2022-12-06] MEDS: HYDRALAZINE HCL 100MG TABLET PO SCH ×4 (00:02→21:33)
[2022-12-06] MEDS: MORPHINE SULFATE 2 MG/ML CPJ (NOT FOR IM USE) IV PRN ×3 (00:03→10:08)
[2022-12-06] MEDS: DIPHENHYDRAMINE 50MG/ML VIAL IV PRN ×2 (01:33→10:08)
[2022-12-06] MEDS: BLOOD SUGAR DIAGNOSTIC STRIP TEST SCH ×6 (03:59→23:34)
[2022-12-06 07:19] LABS: BASOPHILS % 1.2 % (0.0-2.0); EOSINOPHILS % 4.2 % (0.0-5.0); HEMOGLOBIN. 9.4 g/dL (12.0-16.0); LYMPHOCYTES % 19.6 % (20.0-50.0); MEAN CORPUSCULAR HEMOGLOBIN 32.3 pg (28.0-32.0); MEAN CORPUSCULAR VOLUME 96.7 fL (81.0-99.0); MEAN PLATELET VOLUME 8.7 fl (7.4-10.4); MONOCYTES % 8.7 % (2.0-8.0); NEUTROPHILS % 66.3 % (40.0-76.0); PLATELET 171 x1000/uL (130-400); RED CELL DISTRIBUTION WIDTH 16.6 % (11.6-14.6)
[2022-12-06] MEDS: SEVELAMER CARBONATE 800 MG TABLET PO SCH ×3 (09:08→18:55)
[2022-12-06] MEDS: AMLODIPINE 10MG TABLET PO SCH (09:08)
[2022-12-06] MEDS: CLONIDINE 0.2MG TABLET PO SCH ×2 (09:08→21:00)
[2022-12-06] MEDS: FOLIC ACID/VITAMIN B COMP W-C TABLET PO SCH (09:08)
[2022-12-06] MEDS: PANTOPRAZOLE SODIUM 40 MG/VIAL IV SCH (09:08)
[2022-12-06] MEDS: INSULIN LISPRO 100 UNITS/ML SUBCUT SCH ×4 (09:17→21:00)
[2022-12-06] MEDS: DEXT 10% WATER 1,000 ML IV SCH ×2 (12:30→22:47)
[2022-12-06] MEDS ORDERED: LORAZEPAM 2MG/ML CPJ ONE (19:40)
[2022-12-06] MEDS ORDERED: LORAZEPAM 2MG/ML CPJ IM PRN (19:45)
[2022-12-06] MEDS: DEXTROSE 50% WATER 50ML SYRINGE IV PRN ×2 (19:49→21:00)
[2022-12-06 20:33] LABS: PHOSPHORUS 5.9 mg/dL (2.5-4.9)
[2022-12-06 21:03] LABS: HEPATITIS B SURFACE ANTIGEN NEGATIVE
[2022-12-07] VITALS (21 sets, daily range): BP systolic 93–175; BP diastolic 48–90
[2022-12-07] MEDS: ONDANSETRON HCL 4MG/2ML INJ IV SCH ×4 (00:15→18:15)
[2022-12-07 01:17] LABS: BASOPHILS % 1.2 % (0.0-2.0); EOSINOPHILS % 4.4 % (0.0-5.0); HEMATOCRIT. 31.7 % (36.0-48.0); HEMOGLOBIN. 10.5 g/dL (12.0-16.0); LYMPHOCYTES % 11.7 % (20.0-50.0); MEAN CORPUSCULAR HEMOGLOBIN 31.2 pg (28.0-32.0); MEAN CORPUSCULAR VOLUME 93.9 fL (81.0-99.0); MEAN PLATELET VOLUME 7.8 fl (7.4-10.4); MONOCYTES % 5.5 % (2.0-8.0); NEUTROPHILS % 77.2 % (40.0-76.0); PLATELET 212 x1000/uL (130-400); RED BLOOD CELL COUNT 3.37 mill/uL (4.2-5.4); RED CELL DISTRIBUTION WIDTH 15.7 % (11.6-14.6)
[2022-12-07] MEDS: BLOOD SUGAR DIAGNOSTIC STRIP TEST SCH ×5 (04:16→20:00)
[2022-12-07] MEDS: HYDRALAZINE HCL 100MG TABLET PO SCH ×3 (05:31→23:03)
[2022-12-07] MEDS: INSULIN LISPRO 100 UNITS/ML SUBCUT SCH ×4 (08:00→21:00)
[2022-12-07] MEDS: CLONIDINE 0.2MG TABLET PO SCH ×2 (09:00→23:29)
[2022-12-07] MEDS: AMLODIPINE 10MG TABLET PO SCH (09:00)
[2022-12-07] MEDS: PANTOPRAZOLE SODIUM 40 MG/VIAL IV SCH (09:42)
[2022-12-07] MEDS: SEVELAMER CARBONATE 800 MG TABLET PO SCH ×3 (09:43→18:36)
[2022-12-07] MEDS: DIPHENHYDRAMINE 50MG/ML VIAL IV PRN ×2 (09:43→19:07)
[2022-12-07] MEDS: FOLIC ACID/VITAMIN B COMP W-C TABLET PO SCH (09:43)
[2022-12-07 11:00] LABS: BASOPHILS % 0.6 % (0.0-2.0); EOSINOPHILS % 4.1 % (0.0-5.0); HEMATOCRIT. 27.8 % (36.0-48.0); HEMOGLOBIN. 9.3 g/dL (12.0-16.0); LYMPHOCYTES % 11.9 % (20.0-50.0); MEAN CORPUSCULAR VOLUME 92.5 fL (81.0-99.0); MONOCYTES % 5.4 % (2.0-8.0); PLATELET 164 x1000/uL (130-400); RED BLOOD CELL COUNT 3.01 mill/uL (4.2-5.4)
[2022-12-07] MEDS: MORPHINE SULFATE 2 MG/ML CPJ (NOT FOR IM USE) IV PRN ×3 (12:18→23:33)
[2022-12-07] MEDS ORDERED: DEXTROSE 5% WATER 1,000 ML IV SCH (14:30)
[2022-12-07] MEDS: EPOETIN ALFA-EPBX 4,000 UNIT/ML VIAL SUBCUT SCH (22:58)
[2022-12-08] VITALS (13 sets, daily range): BP systolic 112–182; BP diastolic 63–120
[2022-12-08] MEDS: BLOOD SUGAR DIAGNOSTIC STRIP TEST SCH ×7 (00:36→23:59)
[2022-12-08] MEDS: ONDANSETRON HCL 4MG/2ML INJ IV SCH ×4 (00:39→18:15)
[2022-12-08] MEDS: DIPHENHYDRAMINE 50MG/ML VIAL IV PRN ×4 (00:50→21:53)
[2022-12-08] MEDS: HYDRALAZINE 20MG/ML VIAL IV PRN (01:10)
[2022-12-08] MEDS: MORPHINE SULFATE 2 MG/ML CPJ (NOT FOR IM USE) IV PRN ×2 (03:49→10:06)
[2022-12-08] MEDS: HYDRALAZINE HCL 100MG TABLET PO SCH ×3 (06:04→21:53)
[2022-12-08] MEDS: FOLIC ACID/VITAMIN B COMP W-C TABLET PO SCH (08:34)
[2022-12-08] MEDS: PANTOPRAZOLE SODIUM 40 MG/VIAL IV SCH (08:34)
[2022-12-08] MEDS: AMLODIPINE 10MG TABLET PO SCH (08:35)
[2022-12-08] MEDS: CLONIDINE 0.2MG TABLET PO SCH ×2 (08:35→21:52)
[2022-12-08] MEDS: INSULIN LISPRO 100 UNITS/ML SUBCUT SCH ×4 (08:39→21:00)
[2022-12-08] MEDS: SEVELAMER CARBONATE 800 MG TABLET PO SCH ×3 (08:46→17:38)
[2022-12-08 10:16] LABS: BASOPHILS % 0.9 % (0.0-2.0); HEMOGLOBIN. 8.6 g/dL (12.0-16.0); LYMPHOCYTES % 19.2 % (20.0-50.0); MEAN CORPUSCULAR HEMOGLOBIN 31.6 pg (28.0-32.0); MEAN CORPUSCULAR VOLUME 95.1 fL (81.0-99.0); MEAN PLATELET VOLUME 8.3 fl (7.4-10.4); MONOCYTES % 8.4 % (2.0-8.0); NEUTROPHILS % 67.5 % (40.0-76.0); PLATELET 176 x1000/uL (130-400); RED BLOOD CELL COUNT 2.73 mill/uL (4.2-5.4); RED CELL DISTRIBUTION WIDTH 15.7 % (11.6-14.6)
[2022-12-08] MEDS ORDERED: SODIUM CHLORIDE 3% 250 ML IV NR (15:00)
[2022-12-08] MEDS ORDERED: NALOXONE HCL 0.4MG/ML VIAL IV PRN (20:30)
[2022-12-09] VITALS (21 sets, daily range): BP systolic 109–174; BP diastolic 51–102
[2022-12-09] MEDS: INSULIN LISPRO 100 UNITS/ML SUBCUT SCH ×5 (00:13→21:00)
[2022-12-09] MEDS: ONDANSETRON HCL 4MG/2ML INJ IV SCH ×5 (00:14→23:14)
[2022-12-09] MEDS: BLOOD SUGAR DIAGNOSTIC STRIP TEST SCH ×5 (03:51→20:00)
[2022-12-09] MEDS: DIPHENHYDRAMINE 50MG/ML VIAL IV PRN ×3 (03:51→20:55)
[2022-12-09] MEDS: HYDRALAZINE HCL 100MG TABLET PO SCH ×3 (06:08→21:27)
[2022-12-09 06:42] LABS: BASOPHILS % 0.7 % (0.0-2.0); EOSINOPHILS % 4.5 % (0.0-5.0); HEMOGLOBIN. 8.3 g/dL (12.0-16.0); LYMPHOCYTES % 19.4 % (20.0-50.0); MEAN CORPUSCULAR HEMOGLOBIN 31.6 pg (28.0-32.0); MEAN CORPUSCULAR VOLUME 94.7 fL (81.0-99.0); MEAN PLATELET VOLUME 8.4 fl (7.4-10.4); NEUTROPHILS % 67.4 % (40.0-76.0); PLATELET 188 x1000/uL (130-400); RED BLOOD CELL COUNT 2.63 mill/uL (4.2-5.4)
[2022-12-09] MEDS: FOLIC ACID/VITAMIN B COMP W-C TABLET PO SCH (08:44)
[2022-12-09] MEDS: SEVELAMER CARBONATE 800 MG TABLET PO SCH ×3 (08:44→17:25)
[2022-12-09] MEDS: CLONIDINE 0.2MG TABLET PO SCH ×2 (08:45→21:27)
[2022-12-09] MEDS: AMLODIPINE 10MG TABLET PO SCH (08:45)
[2022-12-09] MEDS: MORPHINE SULFATE 2 MG/ML CPJ (NOT FOR IM USE) IV PRN (23:15)
[2022-12-10] VITALS (20 sets, daily range): BP systolic 131–176; BP diastolic 39–88
[2022-12-10] MEDS: BLOOD SUGAR DIAGNOSTIC STRIP TEST SCH ×5 (00:26→16:00)
[2022-12-10] MEDS: INSULIN LISPRO 100 UNITS/ML SUBCUT SCH ×4 (00:51→17:09)
[2022-12-10] MEDS: DIPHENHYDRAMINE 50MG/ML VIAL IV PRN ×2 (02:46→09:56)
[2022-12-10 04:08] LABS: HIV SCREEN 4G Non Reactive (Non Reactive)
[2022-12-10] MEDS: HYDRALAZINE HCL 100MG TABLET PO SCH ×2 (05:03→13:26)
[2022-12-10] MEDS: ONDANSETRON HCL 4MG/2ML INJ IV SCH ×3 (05:03→17:23)
[2022-12-10] MEDS: MORPHINE SULFATE 2 MG/ML CPJ (NOT FOR IM USE) IV PRN ×2 (05:04→09:58)
[2022-12-10 06:41] LABS: BASOPHILS % 0.7 % (0.0-2.0); HEMATOCRIT. 24.7 % (36.0-48.0); HEMOGLOBIN. 8.3 g/dL (12.0-16.0); LYMPHOCYTES % 13.6 % (20.0-50.0); MEAN CORPUSCULAR HEMOGLOBIN 31.9 pg (28.0-32.0); MEAN CORPUSCULAR VOLUME 95.3 fL (81.0-99.0); MEAN PLATELET VOLUME 8.2 fl (7.4-10.4); MONOCYTES % 6.9 % (2.0-8.0); NEUTROPHILS % 74.8 % (40.0-76.0); PLATELET 209 x1000/uL (130-400); RED BLOOD CELL COUNT 2.59 mill/uL (4.2-5.4); RED CELL DISTRIBUTION WIDTH 16.2 % (11.6-14.6)
[2022-12-10] MEDS: CLONIDINE 0.2MG TABLET PO SCH (09:00)
[2022-12-10] MEDS: AMLODIPINE 10MG TABLET PO SCH (09:52)
[2022-12-10] MEDS: FOLIC ACID/VITAMIN B COMP W-C TABLET PO SCH (09:52)
[2022-12-10] MEDS: SEVELAMER CARBONATE 800 MG TABLET PO SCH ×3 (09:53→17:23)
== END 2022-12-10 18:55 | disposition home or self-care (01) | DRG 73 ==
LOC: ER 22:07 → MICUSO 12-03 01:59 → 7WST 12-03 10:21 → 5EST 12-07 00:10
PROVIDERS: ADMIT Internal Medicine; ATTEND Internal Medicine
PROC: 5A1D70Z Performance of Urinary Filtration, Intermittent, Less than 6 Hours Per Day (ICD-10-PCS; principal; 2022-12-03)
PROC: 5A1D70Z Performance of Urinary Filtration, Intermittent, Less than 6 Hours Per Day (ICD-10-PCS; 2022-12-05)
PROC: 5A1D70Z Performance of Urinary Filtration, Intermittent, Less than 6 Hours Per Day (ICD-10-PCS; 2022-12-07)
PROC: 05HM33Z Insertion of Infusion Device into Right Internal Jugular Vein, Percutaneous Approach (ICD-10-PCS; 2022-12-07)
PROC: B543ZZA Ultrasonography of Right Jugular Veins, Guidance (ICD-10-PCS; 2022-12-07)
PROC: 5A1D70Z Performance of Urinary Filtration, Intermittent, Less than 6 Hours Per Day (ICD-10-PCS; 2022-12-09)
DX: E10.43 Type 1 diabetes mellitus with diabetic autonomic (poly)neuropathy (principal); N18.6 End stage renal disease; E46 Unspecified protein-calorie malnutrition; E87.1 Hypo-osmolality and hyponatremia; E87.20 Acidosis, unspecified; N17.9 Acute kidney failure, unspecified; I12.0 Hypertensive chronic kidney disease with stage 5 chronic kidney disease or end stage renal disease; R18.8 Other ascites; E87.5 Hyperkalemia; Z20.822 Contact with and (suspected) exposure to COVID-19; K31.84 Gastroparesis; D63.1 Anemia in chronic kidney disease; E10.22 Type 1 diabetes mellitus with diabetic chronic kidney disease; E10.649 Type 1 diabetes mellitus with hypoglycemia without coma; Z88.8 Allergy status to other drugs, medicaments and biological substances; Z86.74 Personal history of sudden cardiac arrest; Z99.2 Dependence on renal dialysis; Z79.4 Long term (current) use of insulin; Z91.15 Patient's noncompliance with renal dialysis; Z90.49 Acquired absence of other specified parts of digestive tract; Z68.20 Body mass index [BMI] 20.0-20.9, adult
CPT/HCPCS: 36415; 71045; 74018; 74176; 76937; 80048; 80053; 80076; 80320; 82553; 82607; 82728; 82746; 82947; 82962; 83036; 83540; 83550; 83735; 83880; 83930; 84100; 84443; 84484; 84703; 85025; 85044; 86705; 86709; 86803; 86850; 86900; 87340; 87389; 87426; 87804; 90935; 93005; 93971; 94640; 99291; C1725; C1760; C9113; J0360; J0696; J0885; J1200; J1815; J2060; J2270; J2405; J3490; J7070; A4315; G0480

== ENCOUNTER 2022-12-30 01:11 | Inpatient (IN) | payer MEDICARE, MEDICAID ==
[2022-12-30] VITALS (12 sets, daily range): BP systolic 144–198; BP diastolic 55–91
[~2022-12-30] VITALS: Ht 152.4 cm; Wt 60.8 kg
[2022-12-30] MEDS ORDERED: DIPHENHYDRAMINE 50MG/ML VIAL IV ONE (02:00)
[2022-12-30] MEDS ORDERED: PANTOPRAZOLE SODIUM 40 MG/VIAL IV STA (02:00)
[2022-12-30] MEDS ORDERED: ONDANSETRON HCL 4MG/2ML INJ IV STA (02:00)
[2022-12-30] MEDS ORDERED: MORPHINE SULFATE 4 MG/ML CPJ (NOT FOR IM USE) IV STA (02:00)
[2022-12-30 02:19] LABS: BASOPHILS % 1.9 % (0.0-2.0); EOSINOPHILS % 3.6 % (0.0-5.0); HEMATOCRIT. 25.4 % (36.0-48.0); HEMOGLOBIN. 8.2 g/dL (12.0-16.0); MEAN CORPUSCULAR HEMOGLOBIN 31.3 pg (28.0-32.0); MEAN CORPUSCULAR VOLUME 97.5 fL (81.0-99.0); MEAN PLATELET VOLUME 8.4 fl (7.4-10.4); MONOCYTES % 5.2 % (2.0-8.0); NEUTROPHILS % 73.3 % (40.0-76.0); PLATELET 250 x1000/uL (130-400); RED CELL DISTRIBUTION WIDTH 15.4 % (11.6-14.6)
[2022-12-30 02:22] LABS: CHLORIDE 101 mEq/L (98-107)
[2022-12-30 02:59] LABS: HCG SCREEN NEGATIVE
[2022-12-30] MEDS ORDERED: LABETALOL 5MG/ML SYR 20 MG/4 ML SYRINGE IV ONE (03:15)
[2022-12-30] MEDS ORDERED: INSULIN REGULAR (HUMULIN R) 300UNITS/3ML VIAL SUBCUT NR (04:15)
[2022-12-30] MEDS ORDERED: LABETALOL 5MG/ML SYR 20 MG/4 ML SYRINGE IV NR (05:15)
[2022-12-30] MEDS ORDERED: CLONIDINE 0.1MG TABLET PO PRN (08:45)
[2022-12-30] MEDS ORDERED: IPRATROPIUM/ALBUTEROL 0.5-3(2.5)MG/3ML NEB HHN PRN (10:45)
[2022-12-30] MEDS ORDERED: DEXTROSE 50% WATER 50ML SYRINGE IV NR (10:45)
[2022-12-30] MEDS ORDERED: ONDANSETRON HCL 4MG/2ML INJ IV PRN (10:45)
[2022-12-30] MEDS ORDERED: DEXT 5%/0.45% NACL 1000ML 1,000 ML IV SCH (10:45)
[2022-12-30] MEDS ORDERED: ACETAMINOPHEN 325MG TABLET PO PRN (10:45)
[2022-12-30] MEDS: DIPHENHYDRAMINE 50MG/ML VIAL IV PRN ×2 (12:49→21:31)
[2022-12-30] MEDS: MORPHINE SULFATE 2 MG/ML CPJ (NOT FOR IM USE) IV PRN ×2 (12:55→18:26)
[2022-12-30 16:53] LABS: INR 1.2; PARTIAL THROMBOPLASTIN TIME 32.8 sec (23.4-31.0); PROTHROMBIN TIME 12.6 sec (9.6-11.0)
[2022-12-30] MEDS: DEXT 10% WATER 1,000 ML IV SCH (18:24)
[2022-12-30] MEDS: HYDRALAZINE 20MG/ML VIAL IV PRN (18:26)
[2022-12-30 18:41] LABS: HEPATITIS B SURFACE ANTIGEN NEGATIVE
[2022-12-30] MEDS ORDERED: IPRATROPIUM BROMIDE (0.02%) 0.5MG/2.5ML NEB HHN PRN (21:00)
[2022-12-30] MEDS: INSULIN LISPRO 100 UNITS/ML SUBCUT SCH (21:00)
[2022-12-30] MEDS ORDERED: ALBUTEROL (0.083%) 2.5MG/3ML NEB HHN PRN (21:00)
[2022-12-30] MEDS: BLOOD SUGAR DIAGNOSTIC STRIP TEST SCH (21:18)
[2022-12-31] VITALS: BP 145/65
[2022-12-31] MEDS: MORPHINE SULFATE 2 MG/ML CPJ (NOT FOR IM USE) IV PRN ×3 (00:52→17:37)
[2022-12-31 04:00] VITALS: BP 157/71
[2022-12-31] MEDS: DIPHENHYDRAMINE 50MG/ML VIAL IV PRN ×2 (05:59→14:30)
[2022-12-31] MEDS: BLOOD SUGAR DIAGNOSTIC STRIP TEST SCH ×4 (06:49→20:19)
[2022-12-31] MEDS: DEXT 10% WATER 1,000 ML IV SCH ×2 (06:50→22:30)
[2022-12-31 07:21] LABS: BASOPHILS % 1.3 % (0.0-2.0); EOSINOPHILS % 4.4 % (0.0-5.0); HEMATOCRIT. 24.5 % (36.0-48.0); LYMPHOCYTES % 18.8 % (20.0-50.0); MEAN CORPUSCULAR HEMOGLOBIN 30.8 pg (28.0-32.0); MEAN CORPUSCULAR VOLUME 94.3 fL (81.0-99.0); MEAN PLATELET VOLUME 8.1 fl (7.4-10.4); NEUTROPHILS % 71.5 % (40.0-76.0); PLATELET 259 x1000/uL (130-400)
[2022-12-31] MEDS ORDERED: SODIUM BICARBONATE 4% (2.4MEQ) 5ML VIAL IV ONE (08:47)
[2022-12-31] MEDS ORDERED: LIDOCAINE HCL 1% 10 MG/ML 10ML VIAL ONE (08:47)
[2022-12-31] MEDS: HYDRALAZINE 20MG/ML VIAL IV PRN ×3 (11:03→17:42)
[2022-12-31] MEDS: INSULIN LISPRO 100 UNITS/ML SUBCUT SCH ×4 (11:43→20:19)
[2022-12-31 12:00] VITALS: BP 175/102
[2022-12-31 16:00] VITALS: BP 188/77
[2022-12-31] MEDS: DEXTROSE 50% WATER 50ML SYRINGE IV PRN ×4 (17:09→23:00)
[2022-12-31] MEDS ORDERED: DEXTROSE 5% WATER 1,000 ML IV SCH (17:30)
[2022-12-31] MEDS: ENOXAPARIN 60MG/0.6ML SYR SUBCUT SCH (17:36)
[2022-12-31 20:00] VITALS: BP 174/76
[2023-01-01] VITALS (10 sets, daily range): BP systolic 139–194; BP diastolic 70–87
[2023-01-01] MEDS: HYDRALAZINE 20MG/ML VIAL IV PRN ×2 (00:22→22:14)
[2023-01-01] MEDS: DIPHENHYDRAMINE 50MG/ML VIAL IV PRN ×3 (00:22→20:03)
[2023-01-01] MEDS: MORPHINE SULFATE 2 MG/ML CPJ (NOT FOR IM USE) IV PRN ×4 (01:04→22:15)
[2023-01-01] MEDS: BLOOD SUGAR DIAGNOSTIC STRIP TEST SCH ×4 (06:43→21:00)
[2023-01-01] MEDS: INSULIN LISPRO 100 UNITS/ML SUBCUT SCH ×4 (09:08→21:00)
[2023-01-01] MEDS: DEXT 10% WATER 1,000 ML IV SCH (11:20)
[2023-01-01 11:42] LABS: BASOPHILS % 1.4 % (0.0-2.0); EOSINOPHILS % 4.6 % (0.0-5.0); HEMATOCRIT. 25.8 % (36.0-48.0); HEMOGLOBIN. 8.7 g/dL (12.0-16.0); LYMPHOCYTES % 19.8 % (20.0-50.0); MEAN CORPUSCULAR HEMOGLOBIN 31.7 pg (28.0-32.0); MEAN CORPUSCULAR VOLUME 94.2 fL (81.0-99.0); MONOCYTES % 5.4 % (2.0-8.0); NEUTROPHILS % 68.8 % (40.0-76.0); PLATELET 235 x1000/uL (130-400); RED BLOOD CELL COUNT 2.74 mill/uL (4.2-5.4); RED CELL DISTRIBUTION WIDTH 15.2 % (11.6-14.6)
[2023-01-01] MEDS ORDERED: NALOXONE HCL 0.4MG/ML VIAL IV PRN (18:15)
[2023-01-01] MEDS: ENOXAPARIN 60MG/0.6ML SYR SUBCUT SCH (19:47)
[2023-01-01] MEDS: CLONIDINE 0.1MG TABLET PO PRN (20:31)
[2023-01-02] VITALS: BP 115/56
[2023-01-02] MEDS: DEXT 10% WATER 1,000 ML IV SCH (00:57)
[2023-01-02 04:00] VITALS: BP 170/51
[2023-01-02] MEDS: MORPHINE SULFATE 2 MG/ML CPJ (NOT FOR IM USE) IV PRN ×5 (04:09→23:14)
[2023-01-02] MEDS: DIPHENHYDRAMINE 50MG/ML VIAL IV PRN ×3 (04:47→22:06)
[2023-01-02] MEDS: CLONIDINE 0.1MG TABLET PO PRN ×2 (05:07→17:39)
[2023-01-02 07:25] LABS: EOSINOPHILS % 2.8 % (0.0-5.0); HEMATOCRIT. 24.4 % (36.0-48.0); HEMOGLOBIN. 8.1 g/dL (12.0-16.0); LYMPHOCYTES % 17.9 % (20.0-50.0); MEAN CORPUSCULAR HEMOGLOBIN 32.2 pg (28.0-32.0); MEAN CORPUSCULAR VOLUME 96.5 fL (81.0-99.0); MEAN PLATELET VOLUME 8.3 fl (7.4-10.4); MONOCYTES % 3.8 % (2.0-8.0); NEUTROPHILS % 74.5 % (40.0-76.0); PLATELET 200 x1000/uL (130-400); RED BLOOD CELL COUNT 2.53 mill/uL (4.2-5.4); RED CELL DISTRIBUTION WIDTH 15.1 % (11.6-14.6)
[2023-01-02] MEDS: BLOOD SUGAR DIAGNOSTIC STRIP TEST SCH ×4 (07:40→20:27)
[2023-01-02 08:00] VITALS: BP 135/98
[2023-01-02] MEDS: INSULIN LISPRO 100 UNITS/ML SUBCUT SCH ×4 (08:10→17:40)
[2023-01-02] MEDS ORDERED: INSULIN REGULAR (HUMULIN R) 300UNITS/3ML VIAL SUBCUT SCH (08:28)
[2023-01-02 12:19] VITALS: BP 140/62
[2023-01-02 16:00] VITALS: BP 176/70
[2023-01-02] MEDS: DEXTROSE 50% WATER 50ML SYRINGE IV PRN (16:36)
[2023-01-02] MEDS: ENOXAPARIN 60MG/0.6ML SYR SUBCUT SCH (17:39)
[2023-01-02 20:00] VITALS: BP 181/67
[2023-01-02] MEDS: HYDRALAZINE 20MG/ML VIAL IV PRN (22:06)
[2023-01-03] VITALS (17 sets, daily range): BP systolic 165–198; BP diastolic 63–118
[2023-01-03] MEDS: CLONIDINE 0.1MG TABLET PO PRN ×2 (01:02→14:00)
[2023-01-03] MEDS: BLOOD SUGAR DIAGNOSTIC STRIP TEST SCH ×5 (03:00→20:57)
[2023-01-03] MEDS: MORPHINE SULFATE 2 MG/ML CPJ (NOT FOR IM USE) IV PRN ×2 (05:38→11:44)
[2023-01-03 06:38] LABS: BASOPHILS % 1.3 % (0.0-2.0); HEMOGLOBIN. 8.1 g/dL (12.0-16.0); MEAN CORPUSCULAR HEMOGLOBIN 31.2 pg (28.0-32.0); MEAN CORPUSCULAR VOLUME 95.9 fL (81.0-99.0); MEAN PLATELET VOLUME 8.3 fl (7.4-10.4); MONOCYTES % 5.5 % (2.0-8.0); NEUTROPHILS % 65.2 % (40.0-76.0); PLATELET 177 x1000/uL (130-400); RED BLOOD CELL COUNT 2.61 mill/uL (4.2-5.4); RED CELL DISTRIBUTION WIDTH 14.7 % (11.6-14.6)
[2023-01-03] MEDS: INSULIN LISPRO 100 UNITS/ML SUBCUT SCH ×6 (07:40→18:21)
[2023-01-03 08:18] LABS: T4 FREE 1.02 ng/dL (0.76-1.46)
[2023-01-03] MEDS: DIPHENHYDRAMINE 50MG/ML VIAL IV PRN (08:44)
[2023-01-03] MEDS: HYDRALAZINE 20MG/ML VIAL IV PRN (11:43)
[2023-01-03] MEDS: CLONIDINE 0.2MG TABLET PO SCH ×2 (13:00→22:38)
[2023-01-03] MEDS ORDERED: HYDRALAZINE HCL 100MG TABLET PO NR (13:00)
[2023-01-03] MEDS: AMLODIPINE 10MG TABLET PO SCH (14:01)
[2023-01-03] MEDS: ENOXAPARIN 60MG/0.6ML SYR SUBCUT SCH (18:16)
[2023-01-03] MEDS ORDERED: HYDRALAZINE HCL 100MG TABLET PO SCH (21:00)
[2023-01-03] MEDS ORDERED: INSULIN GLARGINE 100 UNITS/ML SUBCUT SCH (22:00)
[2023-01-03] MEDS ORDERED: HYDROCODONE/ACETAMINOPHEN 5/325MG TABLET PO NR (23:00)
[2023-01-03] MEDS ORDERED: DIPHENHYDRAMINE 25MG CAPSULE PO NR (23:00)
[2023-01-04] VITALS: BP 154/74
[2023-01-04] MEDS: BLOOD SUGAR DIAGNOSTIC STRIP TEST SCH ×2 (03:00→06:54)
[2023-01-04 04:00] VITALS: BP 177/59
[2023-01-04] MEDS: INSULIN LISPRO 100 UNITS/ML SUBCUT SCH ×2 (08:09→08:10)
[2023-01-04] MEDS: AMLODIPINE 10MG TABLET PO SCH (09:35)
[2023-01-04] MEDS: CLONIDINE 0.1MG TABLET PO PRN (09:35)
[2023-01-04] MEDS: HYDRALAZINE 20MG/ML VIAL IV PRN (09:35)
[2023-01-04] MEDS: CLONIDINE 0.2MG TABLET PO SCH (09:36)
[2023-01-04 10:00] VITALS: BP 149/69
== END 2023-01-04 10:32 | disposition home health service (06) | DRG 73 ==
LOC: ER 01:41 → 7WST 04:34 → EDBEDREQ 04:44 → EDBEDREQTM 04:44 → ENRESERV 07:43
PROVIDERS: ADMIT Internal Medicine; ATTEND Internal Medicine
PROC: 02H633Z Insertion of Infusion Device into Right Atrium, Percutaneous Approach (ICD-10-PCS; principal; 2022-12-30)
PROC: B548ZZA Ultrasonography of Superior Vena Cava, Guidance (ICD-10-PCS; 2022-12-30)
PROC: 0W9G3ZZ Drainage of Peritoneal Cavity, Percutaneous Approach (ICD-10-PCS; 2022-12-30)
PROC: 5A1D70Z Performance of Urinary Filtration, Intermittent, Less than 6 Hours Per Day (ICD-10-PCS; 2022-12-30)
PROC: 5A1D70Z Performance of Urinary Filtration, Intermittent, Less than 6 Hours Per Day (ICD-10-PCS; 2023-01-01)
PROC: 5A1D70Z Performance of Urinary Filtration, Intermittent, Less than 6 Hours Per Day (ICD-10-PCS; 2023-01-03)
DX: E10.43 Type 1 diabetes mellitus with diabetic autonomic (poly)neuropathy (principal); N18.6 End stage renal disease; R18.8 Other ascites; E87.1 Hypo-osmolality and hyponatremia; I12.0 Hypertensive chronic kidney disease with stage 5 chronic kidney disease or end stage renal disease; E16.0 Drug-induced hypoglycemia without coma; E10.22 Type 1 diabetes mellitus with diabetic chronic kidney disease; K31.84 Gastroparesis; E87.70 Fluid overload, unspecified; E10.319 Type 1 diabetes mellitus with unspecified diabetic retinopathy without macular edema; E83.51 Hypocalcemia; D63.1 Anemia in chronic kidney disease; T38.3X5A Adverse effect of insulin and oral hypoglycemic [antidiabetic] drugs, initial encounter; Z99.2 Dependence on renal dialysis; Z86.74 Personal history of sudden cardiac arrest; Z79.4 Long term (current) use of insulin; Z79.899 Other long term (current) drug therapy; Z83.3 Family history of diabetes mellitus; Z88.8 Allergy status to other drugs, medicaments and biological substances
CPT/HCPCS: 36415; 36573; 49083; 71045; 74176; 80048; 80053; 82010; 82533; 82962; 83036; 83605; 84439; 84443; 84703; 85025; 86705; 86709; 86803; 87340; 90935; 93005; 93970; 93971; 99285; C1725; C9113; J0360; J1200; J1650; J1815; J2270; J2405; J3490; Q0163

== ENCOUNTER 2023-04-16 20:20 | Inpatient (IN) | payer MEDICARE, MEDICAID ==
[~2023-04-16] VITALS: Ht 152.4 cm; Wt 59.4 kg
[2023-04-16 21:01] LABS: BASOPHILS % 2.2 % (0.0-2.0); HEMATOCRIT. 30.9 % (36.0-48.0); HEMOGLOBIN. 9.9 g/dL (12.0-16.0); LYMPHOCYTES % 13.9 % (20.0-50.0); MEAN CORPUSCULAR HEMOGLOBIN 30.8 pg (28.0-32.0); MEAN CORPUSCULAR VOLUME 95.9 fL (81.0-99.0); MEAN PLATELET VOLUME 7.6 fl (7.4-10.4); MONOCYTES % 5.8 % (2.0-8.0); NEUTROPHILS % 76.1 % (40.0-76.0); PLATELET 230 x1000/uL (130-400); RED BLOOD CELL COUNT 3.23 mill/uL (4.2-5.4); RED CELL DISTRIBUTION WIDTH 15.5 % (11.6-14.6)
[2023-04-16 21:10] LABS: CHLORIDE 105 mEq/L (98-107)
[2023-04-16 21:25] LABS: HCG SCREEN NEGATIVE
[2023-04-16 21:45] LABS: ETHANOL BLOOD < 10 mg/dL (-10)
[2023-04-16] MEDS ORDERED: MORPHINE SULFATE 4 MG/ML CPJ (NOT FOR IM USE) IV STA (22:20)
[2023-04-16] MEDS ORDERED: ONDANSETRON HCL 4MG/2ML INJ IV STA (22:20)
[2023-04-16] MEDS ORDERED: LABETALOL HCL VIAL 20 MG/4 ML VIAL IV ONE (22:30)
[2023-04-16] MEDS ORDERED: DIPHENHYDRAMINE 50MG/ML VIAL IV ONE (22:30)
[2023-04-16] MEDS ORDERED: LABETALOL 5MG/ML SYR 20 MG/4 ML SYRINGE IV NR (22:30)
[2023-04-17] VITALS (9 sets, daily range): BP systolic 178–226; BP diastolic 101–125; PULSE 78–86; RESP 13–18; TEMP 98–98.1
[2023-04-17] MEDS ORDERED: NICARDIPINE 100 MG in SODIUM CHLORIDE 0.9% 60 ML IV ONE (01:30)
[2023-04-17] MEDS ORDERED: NICARDIPINE 100 MG in SODIUM CHLORIDE 0.9% 60 ML IV NR (02:00)
[2023-04-17] MEDS ORDERED: MORPHINE SULFATE 2 MG/ML CPJ (NOT FOR IM USE) IV NR ×2 (07:00→09:30)
[2023-04-17] MEDS ORDERED: DIPHENHYDRAMINE 50MG/ML VIAL IV NR (11:45)
[2023-04-17 12:23] LABS: BASOPHILS % 1.3 % (0.0-2.0); EOSINOPHILS % 0.9 % (0.0-5.0); HEMATOCRIT. 27.6 % (36.0-48.0); HEMOGLOBIN. 8.8 g/dL (12.0-16.0); MEAN CORPUSCULAR HEMOGLOBIN 30.7 pg (28.0-32.0); MEAN CORPUSCULAR VOLUME 95.9 fL (81.0-99.0); MEAN PLATELET VOLUME 8.8 fl (7.4-10.4); MONOCYTES % 5.7 % (2.0-8.0); NEUTROPHILS % 76.1 % (40.0-76.0); PLATELET 225 x1000/uL (130-400); RED BLOOD CELL COUNT 2.88 mill/uL (4.2-5.4); RED CELL DISTRIBUTION WIDTH 15.6 % (11.6-14.6)
[2023-04-17 12:50] LABS: PHOSPHORUS 8.1 mg/dL (2.5-4.9)
[2023-04-17] MEDS: HYDRALAZINE HCL 50MG TABLET PO SCH ×2 (12:58→20:19)
[2023-04-17] MEDS ORDERED: CLONIDINE 0.2MG TABLET PO SCH (14:00)
[2023-04-17 14:27] LABS: HEPATITIS B SURFACE ANTIGEN NEGATIVE
[2023-04-17] MEDS ORDERED: ACETAMINOPHEN 325MG TABLET PO PRN ×2 (15:30)
[2023-04-17] MEDS ORDERED: ONDANSETRON HCL 4MG/2ML INJ IV PRN (15:30)
[2023-04-17] MEDS ORDERED: DEXTROSE 50% WATER 50ML SYRINGE IV PRN (15:30)
[2023-04-17] MEDS ORDERED: DOCUSATE SODIUM 100MG CAPSULE PO PRN (15:30)
[2023-04-17] MEDS ORDERED: IPRATROPIUM/ALBUTEROL 0.5-3(2.5)MG/3ML NEB HHN PRN (15:30)
[2023-04-17] MEDS ORDERED: HYDRALAZINE 20MG/ML VIAL IV NR (16:15)
[2023-04-17] MEDS: DIPHENHYDRAMINE 50MG/ML VIAL IV PRN (17:34)
[2023-04-17] MEDS: CLONIDINE 0.1MG TABLET PO SCH (20:18)
[2023-04-17] MEDS: METOCLOPRAMIDE HCL 10MG/2ML VIAL IV SCH (20:18)
[2023-04-17] MEDS: CALCIUM ACETATE 667MG CAPSULE PO SCH ×2 (20:19→20:23)
[2023-04-17] MEDS: BLOOD SUGAR DIAGNOSTIC STRIP TEST SCH (20:31)
[2023-04-17] MEDS: INSULIN LISPRO 100 UNITS/ML SUBCUT SCH (20:40)
[2023-04-18] VITALS (14 sets, daily range): BP systolic 139–187; BP diastolic 79–102; PULSE 75–82; RESP 15–18; TEMP 97.7–98.1
[2023-04-18] MEDS: DIPHENHYDRAMINE 50MG/ML VIAL IV PRN ×4 (00:44→23:58)
[2023-04-18] MEDS: METOCLOPRAMIDE HCL 10MG/2ML VIAL IV SCH ×5 (00:50→23:46)
[2023-04-18] MEDS: HYDRALAZINE HCL 50MG TABLET PO SCH ×5 (00:50→23:45)
[2023-04-18] MEDS: MINOXIDIL 2.5MG TABLET PO SCH ×3 (00:50→16:44)
[2023-04-18] MEDS: MORPHINE SULFATE 2 MG/ML CPJ (NOT FOR IM USE) IV PRN ×3 (04:45→16:49)
[2023-04-18] MEDS ORDERED: DEXTROSE 50% WATER 50ML SYRINGE IV PRN (05:15)
[2023-04-18] MEDS ORDERED: DEXT 5%/0.45% NACL 1000ML 1,000 ML IV SCH (05:15)
[2023-04-18] MEDS: BLOOD SUGAR DIAGNOSTIC STRIP TEST SCH ×4 (05:36→21:00)
[2023-04-18] MEDS: INSULIN LISPRO 100 UNITS/ML SUBCUT SCH ×4 (07:00→21:33)
[2023-04-18] MEDS: CALCIUM ACETATE 667MG CAPSULE PO SCH ×3 (07:00→16:45)
[2023-04-18] MEDS: CLONIDINE 0.1MG TABLET PO SCH (07:09)
[2023-04-18 08:44] LABS: BASOPHILS % 1.5 % (0.0-2.0); EOSINOPHILS % 2.3 % (0.0-5.0); HEMATOCRIT. 29.4 % (36.0-48.0); HEMOGLOBIN. 9.7 g/dL (12.0-16.0); LYMPHOCYTES % 13.1 % (20.0-50.0); MEAN CORPUSCULAR HEMOGLOBIN 30.7 pg (28.0-32.0); MONOCYTES % 6.3 % (2.0-8.0); NEUTROPHILS % 76.8 % (40.0-76.0); PLATELET 227 x1000/uL (130-400); RED BLOOD CELL COUNT 3.16 mill/uL (4.2-5.4); RED CELL DISTRIBUTION WIDTH 15.2 % (11.6-14.6)
[2023-04-18 08:55] LABS: INR 1.1; PROTHROMBIN TIME 12.2 sec (9.6-11.0)
[2023-04-18] MEDS ORDERED: SODIUM BICARBONATE 4% (2.4MEQ) 5ML VIAL IV ONE ×2 (09:39→13:39)
[2023-04-18] MEDS ORDERED: LIDOCAINE HCL 1% 10 MG/ML 10ML VIAL ONE ×2 (09:39→13:39)
[2023-04-18] MEDS ORDERED: DIPHENHYDRAMINE 50MG/ML VIAL IV NR (10:30)
[2023-04-18] MEDS ORDERED: NALOXONE HCL 0.4MG/ML VIAL IV PRN (16:15)
[2023-04-18] MEDS: CLONIDINE 0.2MG TABLET PO SCH (21:37)
[2023-04-19] MEDS: DIPHENHYDRAMINE 50MG/ML VIAL IV PRN (06:18)
[2023-04-19] MEDS: METOCLOPRAMIDE HCL 10MG/2ML VIAL IV SCH ×3 (06:19→18:00)
[2023-04-19] MEDS: MORPHINE SULFATE 2 MG/ML CPJ (NOT FOR IM USE) IV PRN ×2 (06:20)
[2023-04-19] MEDS: HYDRALAZINE HCL 50MG TABLET PO SCH ×3 (06:21→18:00)
[2023-04-19] MEDS: INSULIN LISPRO 100 UNITS/ML SUBCUT SCH ×3 (06:30→17:40)
[2023-04-19 07:00] VITALS: BP_SYST 125; BP_SYST 135; BP_DIAS 65; BP_DIAS 85; PULSE 74; PULSE 81; RESP 19; TEMP 98
[2023-04-19] MEDS: CLONIDINE 0.2MG TABLET PO SCH ×2 (07:22→13:41)
[2023-04-19] MEDS: BLOOD SUGAR DIAGNOSTIC STRIP TEST SCH ×3 (07:32→17:47)
[2023-04-19 07:47] LABS: BASOPHILS % 1.2 % (0.0-2.0); EOSINOPHILS % 2.9 % (0.0-5.0); HEMATOCRIT. 27.1 % (36.0-48.0); LYMPHOCYTES % 17.8 % (20.0-50.0); MEAN CORPUSCULAR VOLUME 93.2 fL (81.0-99.0); MEAN PLATELET VOLUME 8.4 fl (7.4-10.4); MONOCYTES % 9.7 % (2.0-8.0); NEUTROPHILS % 68.4 % (40.0-76.0); PLATELET 215 x1000/uL (130-400); RED BLOOD CELL COUNT 2.91 mill/uL (4.2-5.4); RED CELL DISTRIBUTION WIDTH 14.7 % (11.6-14.6)
[2023-04-19 08:00] VITALS: BP 118/66; PULSE 75
[2023-04-19] MEDS: CALCIUM ACETATE 667MG CAPSULE PO SCH ×3 (08:13→17:40)
[2023-04-19] MEDS: MINOXIDIL 2.5MG TABLET PO SCH ×3 (08:14→17:00)
[2023-04-19 09:00] VITALS: BP 108/68; PULSE 77
[2023-04-19 10:00] VITALS: BP_SYST 105; BP_SYST 107; BP_DIAS 65; BP_DIAS 66; PULSE 75; PULSE 77; RESP 18; TEMP 98.2
[2023-04-19 12:00] VITALS: BP 112/54; PULSE 66; RESP 18; TEMP 96.4
[2023-04-19 15:40] VITALS: BP 112/54; PULSE 66; TEMP 97; O2SAT 97
== END 2023-04-19 18:10 | disposition home or self-care (01) | DRG 682 ==
LOC: ER 20:20 → MICUSO 04-17 03:02 → EDBEDREQ 04-17 03:27 → EDBEDREQTM 04-17 03:27 → EDBEDREQSVC 04-17 03:27 → EDBEDREQTM 04-17 23:43 → EDBEDREQSVC 04-17 23:43 → 8WST 04-18 10:18
PROVIDERS: ADMIT Internal Medicine; ATTEND Internal Medicine
PROC: 5A1D70Z Performance of Urinary Filtration, Intermittent, Less than 6 Hours Per Day (ICD-10-PCS; 2023-04-17)
PROC: 0W9G3ZZ Drainage of Peritoneal Cavity, Percutaneous Approach (ICD-10-PCS; principal; 2023-04-18)
PROC: 5A1D70Z Performance of Urinary Filtration, Intermittent, Less than 6 Hours Per Day (ICD-10-PCS; 2023-04-18)
PROC: 5A1D70Z Performance of Urinary Filtration, Intermittent, Less than 6 Hours Per Day (ICD-10-PCS; 2023-04-19)
DX: I12.0 Hypertensive chronic kidney disease with stage 5 chronic kidney disease or end stage renal disease (principal); N18.6 End stage renal disease; I16.1 Hypertensive emergency; R18.8 Other ascites; E87.1 Hypo-osmolality and hyponatremia; E87.5 Hyperkalemia; E87.70 Fluid overload, unspecified; E10.22 Type 1 diabetes mellitus with diabetic chronic kidney disease; D63.1 Anemia in chronic kidney disease; E10.319 Type 1 diabetes mellitus with unspecified diabetic retinopathy without macular edema; E78.5 Hyperlipidemia, unspecified; E83.51 Hypocalcemia; E83.39 Other disorders of phosphorus metabolism; R74.01 Elevation of levels of liver transaminase levels; Z99.2 Dependence on renal dialysis; Z79.899 Other long term (current) drug therapy; Z88.8 Allergy status to other drugs, medicaments and biological substances; Z90.49 Acquired absence of other specified parts of digestive tract
CPT/HCPCS: 36415; 49083; 71045; 74176; 80048; 80053; 80320; 82962; 83036; 83605; 83735; 83880; 84100; 84484; 84703; 85025; 86705; 86709; 86803; 87340; 90935; 93005; 99291; C1893; J0360; J1200; J1815; J2270; J2405; J2765; J3490; J7050; G0480

== ENCOUNTER 2023-05-06 23:32 | Emergency (ER) | payer MEDICARE, MEDICAID ==
[~2023-05-06] VITALS: Ht 160 cm; Wt 70.0 kg
[2023-05-06 23:51] VITALS: TEMP 98; O2SAT 100
[2023-05-07] MEDS ORDERED: MORPHINE SULFATE 4 MG/ML CPJ (NOT FOR IM USE) IV STA (01:43)
[2023-05-07] MEDS ORDERED: ONDANSETRON HCL 4MG/2ML INJ IV STA (01:43)
[2023-05-07] MEDS ORDERED: DIPHENHYDRAMINE 50MG/ML VIAL IV ONE (01:45)
[2023-05-07 02:03] LABS: BASOPHILS % 1.4 % (0.0-2.0); EOSINOPHILS % 1.1 % (0.0-5.0); HEMATOCRIT. 32.6 % (36.0-48.0); HEMOGLOBIN. 10.7 g/dL (12.0-16.0); LYMPHOCYTES % 16.7 % (20.0-50.0); MEAN CORPUSCULAR HEMOGLOBIN 30.1 pg (28.0-32.0); MEAN CORPUSCULAR VOLUME 91.4 fL (81.0-99.0); MEAN PLATELET VOLUME 7.8 fl (7.4-10.4); MONOCYTES % 5.4 % (2.0-8.0); NEUTROPHILS % 75.4 % (40.0-76.0); PLATELET 198 x1000/uL (130-400); RED BLOOD CELL COUNT 3.56 mill/uL (4.2-5.4); RED CELL DISTRIBUTION WIDTH 14.6 % (11.6-14.6); WHITE BLOOD COUNT 5.6 x1000/uL (4.5-11.0)
[2023-05-07 02:13] LABS: CHLORIDE 98 mEq/L (98-107); INDEX HEMOLYSI 2 (1-3); INDEX ICTERIC 1 (1-4); INDEX LIPEMIC 1 (1-3); POTASSIUM 4.1 mEq/L (3.5-5.1); SODIUM 133 mEq/L (136-145)
[2023-05-07 02:19] LABS: ALANINE AMINOTRANSFERASE 52 IU/L (13-61); ALBUMIN 3.5 g/dL (3.4-5.0); ASPARTATE AMINOTRANSFERASE 49 IU/L (15-37); BETA HYDROXYBUTYRATE 1.1 mMol/L (0.0-0.3); BILIRUBIN TOTAL 0.4 mg/dL (0.1-1.0); CALCIUM 8.3 mg/dL (8.5-10.1); CARBON DIOXIDE 23 mEq/L (21-32); ETHANOL BLOOD < 10 mg/dL (-10); GLUCOSE 276 mg/dL (70-105); PROTEIN TOTAL 8.6 g/dL (6.0-8.3); UREA NITROGEN BLOOD 36 mg/dL (7-21)
[2023-05-07 02:24] LABS: HCG SCREEN NEGATIVE
[2023-05-07] MEDS ORDERED: ONDA4TAB50 MT (04:16)
[2023-05-07 09:14] VITALS: BP 175/98; PULSE 89; RESP 17
== END 2023-05-07 09:16 | disposition home or self-care (01) ==
LOC: ER 23:39
DX: E11.22 Type 2 diabetes mellitus with diabetic chronic kidney disease (principal); N18.9 Chronic kidney disease, unspecified; I10 Essential (primary) hypertension; Z88.6 Allergy status to analgesic agent; Z88.8 Allergy status to other drugs, medicaments and biological substances
CPT/HCPCS: 99284; 80053; 82010; 80320; 84703; 83605; 83690; 85025; 36415; 96374; 96375; J1200; J2405; J2270; G0480